=== PATIENT | female | born 1945 | race Caucasian/White ===

== ENCOUNTER → 2016-06-30 | Outpatient (CLI) | payer MEDICARE, BC | LOC: GMAH 11:09 | PROVIDERS: ATTEND Family Medicine | DX: E78.2 Mixed hyperlipidemia (principal) ==

== ENCOUNTER 2017-05-02 10:53 | Inpatient (IN) | payer MEDICARE, BC ==
--- NOTE | 2017-05-02 11:23 | ED.PDOC ---
History of Present Illness - General Chief Complaint: General Stated Complaint: weakness Time Seen by Provider: 05/02/17 11:20 Source: patient Exam Limitations: no limitations - History of Present Illness Initial Comments: Maria E Sheppard 72 y/o female brought by ems with worsening weakness for the last 3 weeks.She has history of COPD and has chronic coughing.Stated had hard time getting out of commode this am.No fever ,no chills,no dysuria Timing/Duration: other - see hpi Improving Factors: nothing Worsening Factors: nothing Associated Symptoms: shortness of breath - chronic, other - see hpi Allergies/Adverse Reactions: Allergies NO KNOWN ALLERGY Allergy (Verified 05/02/17 11:11) Home Medications: Ambulatory Orders Amlodipine Besylate 10 mg PO DAILY 05/02/17 Aspirin [Joseph Low Dose] 81 mg PO DAILY 05/02/17 Calcium Citrate-Vitamin D [Calcium Citrate/Vitamin D] 1 tab PO DAILY 05/02/17 Cholecalciferol [Vitamin D3] 1,000 unit PO DAILY 05/02/17 Fluticasone/Salmeterol 250/50 [Advair Diskus] 2 puff INH DAILY 05/02/17 Potassium Chloride [Micro-K] 40 meq PO DAILY 05/02/17 Pravastatin Sodium 20 mg PO DAILY 05/02/17 Spironolactone 25 mg PO QID 05/02/17 Review of Systems - Review of Systems Constitutional: States: see HPI, weakness EENTM: States: no symptoms reported Respiratory: States: other - copd Cardiology: States: no symptoms reported Gastrointestinal/Abdominal: States: no symptoms reported Genitourinary: States: no symptoms reported Musculoskeletal: States: no symptoms reported Skin: States: no symptoms reported Neurological: States: no symptoms reported Endocrine: States: no symptoms reported Past Medical History (General) - Patient Medical History Hx of COPD: Yes Hx Cardiac Disorders: No Hx Congestive Heart Failure: No Hx Hypertension: Yes Hx Diabetes: No Surgical History: appendectomy, tonsillectomy, other - Hysterectomy - Vaccination History Hx Influenza Vaccination: No Hx Pneumococcal Vaccination: Yes - Social History Hx Tobacco Use: Yes Hx Physical Abuse: No Hx Emotional Abuse: No Hx Suspected Abuse: No - Activities of Daily Living Patient Lives Alone: Yes - home Grooming Ability: Independent Eating (Feeding) Ability: Independent Toileting Ability: Independent - Female History Patient is a Female of Child Bearing Age (10 -59 yrs old): No Family Medical History - Family History Mother Family History: Unknown Living Status: Cause of : Colon CA Hx Cardiac Disease: Yes - dad Hx Family Cancer: Yes - mom Physical Exam - Physical Exam General Appearance: Alert, Comfortable, No apparent distress Eye Exam: bilateral normal Ears, Nose, Throat: hearing grossly normal, normal ENT inspection, normal pharynx Neck: non-tender, supple Respiratory: chest non-tender, no respiratory distress, decreased breath sounds Cardiovascular/Chest: normal peripheral pulses, regular rate, rhythm, no murmur Peripheral Pulses: radial,right: 2+, radial,left: 2+ Gastrointestinal/Abdominal: non tender, soft, no organomegaly Back Exam: no CVA tenderness, no vertebral tenderness Extremity: no calf tenderness, pedal edema - +1 Neurologic: insurance sales associate II-XII nml as tested, no motor/sensory deficits, alert, oriented x 3, other - pronator drift negative Skin Exam: normal color, warm/dry Lymphatic: no adenopathy Progress - Progress Progress: 05/02/17 11:27 Last Vital Signs Temp 96.9 F L 05/02/17 11:07 Pulse 91 H 05/02/17 11:07 Resp 24 05/02/17 11:07 BP 201/91 05/02/17 11:07 Pulse Ox 91 L 05/02/17 11:07 - Results/Orders Results/Orders: Laboratory Tests 05/02/17 05/02/17 05/02/17 11:50 11:50 11:50 WBC 7.6 RBC 4.82 Hgb 12.5 Hct 36.6 MCV 76.0 L MCH 25.9 L MCHC 34.0 RDW 13.8 Plt Count 416 H MPV 7.0 L Absolute Neuts (auto) 5.90 Absolute Lymphs (auto) 1.00 Absolute Monos (auto) 0.60 Absolute Eos (auto) 0.00 Absolute Basos (auto) 0.00 Neutrophils % 78.6 H Lymphocytes % 12.9 L Monocytes % 8.1 Eosinophils % 0.1 L Basophils % 0.3 D-Dimer, Quantitative < 200 pCO2 pO2 HCO3 ABG pH ABG O2 Saturation ABG Base Excess ABG Deoxyhemoglobin Oxyhemoglobin % Carboxyhemoglobin % Methemoglobin % Sat Calc Total Hemoglobin Sodium 119 L* Potassium 2.0 L* Chloride 69 L* Carbon Dioxide 39 H Anion Gap 13.0 BUN 6 L Creatinine 0.44 L BUN/Creatinine Ratio 13.6 Random Glucose 116 H Serum Osmolality 237.1 L* Calcium 9.2 Magnesium Total Bilirubin 0.9 AST 27 ALT 17 Alkaline Phosphatase 66 Troponin I B-Natriuretic Peptide 30.3 Serum Total Protein 6.5 Albumin 3.9 Globulin 2.6 Albumin/Globulin Ratio 1.5 05/02/17 05/02/17 05/02/17 11:50 13:07 13:29 WBC RBC Hgb Hct MCV MCH MCHC RDW Plt Count MPV Absolute Neuts (auto) Absolute Lymphs (auto) Absolute Monos (auto) Absolute Eos (auto) Absolute Basos (auto) Neutrophils % Lymphocytes % Monocytes % Eosinophils % Basophils % D-Dimer, Quantitative pCO2 47 H pO2 47 L* HCO3 41.3 ABG pH 7.550 H ABG O2 Saturation 84.7 L ABG Base Excess 16.4 ABG Deoxyhemoglobin 14.9 H Oxyhemoglobin % 82.5 L Carboxyhemoglobin % 2.2 H Methemoglobin % Sat 0.4 Calc Total Hemoglobin 11.1 L Sodium Potassium Chloride Carbon Dioxide Anion Gap BUN Creatinine BUN/Creatinine Ratio Random Glucose Serum Osmolality Calcium Magnesium 1.4 L Total Bilirubin AST ALT Alkaline Phosphatase Troponin I < 0.02 B-Natriuretic Peptide Serum Total Protein Albumin Globulin Albumin/Globulin Ratio - EKG/XRAY/CT EKG: Sinus, LVH, no ST T wave changes Comments: heart rate-84 XRAY: chest - copd changes Departure - Departure Clinical Impression: Hyponatremia, Hypokalemia, Hypomagnesemia Respiratory failure with hypoxia and hypercapnia Qualifiers: Chronicity: unspecified Qualified Code(s): J96.91 - Respiratory failure, unspecified with hypoxia Time of Disposition: 14:47 Disposition: Admit Patient Departure Forms: Patient Portal Self Enrollment Referrals: Jacek Garay MD [Primary Care Provider] - 1-2 Weeks Home Medications: Ambulatory Orders Amlodipine Besylate 10 mg PO DAILY 05/02/17 Aspirin [Joseph Low Dose] 81 mg PO DAILY 05/02/17 Calcium Citrate-Vitamin D [Calcium Citrate/Vitamin D] 1 tab PO DAILY 05/02/17 Cholecalciferol [Vitamin D3] 1,000 unit PO DAILY 05/02/17 Fluticasone/Salmeterol 250/50 [Advair Diskus] 2 puff INH DAILY 05/02/17 Potassium Chloride [Micro-K] 40 meq PO DAILY 05/02/17 Pravastatin Sodium 20 mg PO DAILY 05/02/17 Spironolactone 25 mg PO QID 05/02/17 Decision To Admit - Decistion To Admit Decision to Admit Reason: Admit from ER Decision to Admit Date: 05/02/17 - D/W Ros Choudhury-ANP/Hospitalist Decision to Admit Time: 14:45
[2017-05-02] MEDS ORDERED: IPRATROPIUM/ALBUTEROL 3 ML VIAL NEB ONE (11:46)
--- NOTE | 2017-05-02 12:18 | RAD ---
Study: Single Frontal View of the Chest. Indication:cough Comparison: None. Impression: Heart size normal. Emphysema, otherwise lungs clear. No acute osseous abnormality. Electronically signed by: Germain Beckham MD 05/02/2017 12:17 PM [facility]
[2017-05-02] MEDS ORDERED: KCL 40MEQ/NS 1,000 ML IVS PRN (13:25)
[2017-05-02] MEDS ORDERED: POTASSIUM CHLORIDE 20 MEQ TAB PO ONE (13:26)
[2017-05-02] MEDS ORDERED: MAGNESIUM SULFATE PREMIX 2GM 2 GM in PREMIX BAG 1 BAG IVPB ONE (14:41)
[2017-05-02] MEDS ORDERED: MAGNESIUM SULFATE PREMIX 2GM 50 ML IVPB ONE (14:52)
--- NOTE | 2017-05-02 15:37 | HP ---
SUPERVISING PHYSICIAN: Calvin Trevino M.D. CHIEF COMPLAINT: Weakness. HISTORY OF PRESENT ILLNESS: This is a 72 year-old female patient who was brought to the Emergency Room via ambulance to the . . 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 She increasingly had difficulty walking and a hard time getting around. She actually had been driving up until a few weeks ago and she was scared to drive her car. She actually said that she thinks she passed out at home several days ago but she cannot remember how long she was out. She did not hit her head or have any traumatic injuries and she does not know how long she was out. She has had some shortness of breath and she quit smoking approximately 4 months ago. She also has cooked very little and mostly has been surviving on Dr. Peppers and coffee. In the Emergency Room , her initial lab showed a sodium of 119 with potassium 2.0, chloride 69, carbon dioxide 39, serum osmolality 237.1. Magnesium was 1.4. WBCs were 7.6 with a left shift. She also had a hemoglobin of 12.5 and hematocrit of 36.6. D -dimer was less than 200 but her blood gas revealed a PCO2 of 47 with PO2 of 47. Her bicarb was 41.3 and pH was 7.55. Her O2 sats on her ABG was 84.7. Her chest x-ray showed emphysematous lungs. She was given some normal saline with potassium added. She was also given magnesium sulfate as well as several breathing treatments and I was called for admission to the hospital. PAST MEDICAL HISTORY: 1. Chronic obstructive pulmonary disease. 2. Hyperlipidemia. 3. Hypertension. PAST SURGICAL HISTORY: 1. Hysterectomy. 2. Tonsillectomy. 3. Appendectomy. CURRENT MEDICATIONS: Per the EMR and awaiting verification. ALLERGIES: NO KNOWN DRUG ALLERGIES. SOCIAL HISTORY: She lives alone. She is . She has 1 daughter that lives in [place], [place]. She has a 60 plus pack year history of cigarette smoking. She has smoked between 1 to 1-1/2 packs per day since age 12 , but quit 4 months ago. She denies any ETOH or illicit drug use. REVIEW OF SYSTEMS: GENERAL: Positive for weakness and fatigue. Negative for weight changes. HEENT: Negative for sinus symptoms, ear pain, vision changes or sore throat. RESPIRATORY: Positive for shortness of breath, wheezing and dry hacking cough. CARDIAC: Negative for chest pain, tachycardia or palpitations. GASTROINTESTINAL: Negative for abdominal pain, nausea, vomiting, diarrhea or constipation. GENITOURINARY: Negative for hematuria, nocturia or dysuria or polyuria. NEUROLOGIC: Positive for dizziness. Negative for headache or seizures. PHYSICAL EXAMINATION: VITAL SIGNS: She is afebrile, pulse rate 80, blood pressure 160/63, respiratory rate 24, O2 sat is 89 to 94% on 2 liters nasal cannula. GENERAL: This is a 72 year-old female patient who is lying in her hospital bed. She is in mild respiratory distress. HEENT: Normocephalic and atraumatic. Pupils are equal and reactive. Oropharynx is clear. NECK: Supple without mass. RESPIRATORY: She is slightly tachypneic. She has diminished breath sounds throughout with whistling expiratory wheeze noted especially in the apices. CARDIOVASCULAR: Regular rate and rhythm. ABDOMEN: Soft, nondistended, non-tender. Bowel sounds are positive. EXTREMITIES: No cyanosis, clubbing or edema. NEUROLOGIC: She is awake, alert and oriented times three, although she does get confused as far as her history but is easily reoriented. LABORATORY: Initial labs are per the History of Present Illness. Followup labs after her admission show PCO2 of 50 with PO2 of 62, pH is 7.49 with O2 saturation of 94.6. Sodium 118, potassium 2.2, chloride 73, carbon dioxide 34, glucose 130, magnesium 2.2. All other labs and films have been reviewed via the EMR. ASSESSMENT: 1. Acute exacerbation of chronic obstructive pulmonary disease with hypoxia and mild hypercapnia. 2. metabolic alkalosis with respiratory compensation. 3. Severe hyponatremia, initially her sodium was 119. It has now dropped to 118. 4. Severe hypokalemia. On admission was 2 and it is now 2.2. 5. Hypomagnesemia initially 1.4, after supplementation is 2.2. 6. History of chronic tobacco abuse recently quit about 4 months ago. 7. Hypertension. 8. Hyperlipidemia. PLAN: We will admit the patient to the hospital. She will be placed on a strict fluid restrictions of 1500 mL per 24 hours. She is going to receive 100 mL of hypertonic saline and then we will supplement her with normal saline with 40 mEq of potassium. I have also given her an extra potassium per IV. I will restart her home medications. She is on scheduled breathing treatments as well as p.r.n. breathing treatments. I have also given her some Solu-Medrol and I have started her on Zithromax and Rocephin. I have consulted [facility] as she lives alone and will need discharge planning. Physical Therapy will be consulted in 2 days, hopefully after we correct her electrolytes. She can be evaluated for her safety. I will also do an ambulation study in the next day or 2 to assess her need for oxygen at home. I have repeated her labs, including a magnesium in the morning as well as a chest x-ray. We will continue to monitor the patient closely and followup as needed. Dr. Trevino is the collaborating physician available for consultation. #[id number] [facility]
[2017-05-02] MEDS ORDERED: ALBUTEROL SULFATE 2.5 MG/3 ML VIAL NEB PRN (18:19)
[2017-05-02] MEDS ORDERED: SOD CHL 3% *HYPERTONIC* 500ML 100 ML IVS ONE (18:22)
[2017-05-02] MEDS ORDERED: KCL 40 MEQ/WATER FOR INJECTION 40 MEQ in PREMIX BAG 1 BAG IVPB ONE (18:26)
[2017-05-02] MEDS ORDERED: ENOXAPARIN SODIUM 40 MG/0.4 ML SYG SUBCU SCH (18:30)
[2017-05-02] MEDS ORDERED: PANTOPRAZOLE SODIUM IV 40 MG VIAL IV SCH (18:30)
[2017-05-02] MEDS: IV SET AND CAP CHANGE INJ INJ SCH (18:47)
[2017-05-02] MEDS ORDERED: methylPREDNISolone SODIUM SUC 125 MG/2 ML VIAL IV ONE (20:21)
[2017-05-02] MEDS: IPRATROPIUM/ALBUTEROL 3 ML VIAL INH SCH (20:45)
[2017-05-02] MEDS ORDERED: AZITHROMYCIN IV 500 MG in SODIUM CHLORIDE 0.9% 250ML 250 ML IVPB SCH (22:00)
[2017-05-02] MEDS: SODIUM CHLORIDE 0.9% (FLUSH) 10 ML SYG IV PRN (22:09)
[2017-05-02] MEDS ORDERED: SODIUM CHLORIDE 0.9% 250ML 0 ML ONE (22:25)
[2017-05-02] MEDS ORDERED: SODIUM CHL 0.9% 50ML MIN-BAG+ 50 ML IVPB ONE (22:25)
[2017-05-02] MEDS ORDERED: cefTRIAXone SODIUM 1 GM VIAL ONE (22:26)
[2017-05-02] MEDS ORDERED: AZITHROMYCIN IV 500 MG VIAL IVPB ONE (22:26)
[2017-05-02] MEDS ORDERED: KCL 40 MEQ/WATER FOR INJECTION 100 ML IVPB ONE (22:27)
[2017-05-02] MEDS: cefTRIAXone SODIUM 1 GM in SODIUM CHL 0.9% 50ML MIN-BAG+ 50 ML IVPB SCH (23:53)
[2017-05-03] MEDS ORDERED: AZITHROMYCIN 250 MG TAB PO SCH (01:00)
[2017-05-03] MEDS: KCL 40MEQ/NS 1,000 ML IVS PRN ×3 (01:38→18:10)
[2017-05-03] MEDS: SODIUM CHLORIDE 0.9% (FLUSH) 10 ML SYG IV PRN ×3 (01:39→20:46)
[2017-05-03] MEDS: methylPREDNISolone SODIUM SUC 125 MG/2 ML VIAL IV SCH ×2 (05:39→13:01)
[2017-05-03] MEDS ORDERED: PANTOPRAZOLE SODIUM TAB 40 MG PO ONE (08:45)
[2017-05-03] MEDS: IPRATROPIUM/ALBUTEROL 3 ML VIAL INH SCH ×4 (09:08→20:10)
[2017-05-03] MEDS: PANTOPRAZOLE SODIUM TAB 40 MG PO SCH (11:53)
--- NOTE | 2017-05-03 17:20 | PCM.CORE ---
Physician DVT/VTE - Nurse DVT Assessment & Total Each Risk Factor Represents 2 Points: Age 60-74 DVT Assessment Score: 2 - 2 Moderate Risk Treatments: Early Ambulation *, Sequential Compression Device Pharmacological: Enoxaparin 40mg SQ Daily
[2017-05-03] MEDS: POTASSIUM CHLORIDE 20 MEQ TAB PO SCH (18:07)
[2017-05-03] MEDS ORDERED: SODIUM CHL 0.9% 50ML MIN-BAG+ 50 ML IVPB ONE (20:28)
[2017-05-03] MEDS ORDERED: cefTRIAXone SODIUM 1 GM VIAL ONE (20:29)
[2017-05-03] MEDS: cefTRIAXone SODIUM 1 GM in SODIUM CHL 0.9% 50ML MIN-BAG+ 50 ML IVPB SCH (20:44)
[2017-05-03] MEDS: PRAVASTATIN SODIUM 20 MG TAB PO SCH (20:45)
[2017-05-03] MEDS: AZITHROMYCIN 250 MG TAB PO SCH (20:45)
[2017-05-03] MEDS: ENOXAPARIN SODIUM 40 MG/0.4 ML SYG SUBCU SCH (20:46)
[2017-05-04] MEDS: PANTOPRAZOLE SODIUM TAB 40 MG PO SCH (06:25)
[2017-05-04] MEDS ORDERED: ASPIRIN (CHEWABLE) 81 MG TAB ONE (08:02)
[2017-05-04] MEDS: IPRATROPIUM/ALBUTEROL 3 ML VIAL INH SCH ×4 (08:32→20:05)
[2017-05-04] MEDS ORDERED: FLUTICASONE/SALMETEROL 250/50 14 PUFF/17 GM INH INH SCH (09:00)
[2017-05-04] MEDS ORDERED: predniSONE 20 MG TAB PO ONE (09:00)
[2017-05-04] MEDS ORDERED: POTASSIUM CHLORIDE 20 MEQ TAB PO SCH (09:00)
[2017-05-04] MEDS ORDERED: methylPREDNISolone SODIUM SUC 40 MG/ML VIAL IV SCH (09:00)
[2017-05-04] MEDS: FLUTICASONE/SALMETEROL 250/50 14 PUFF/17 GM INH INH SCH ×2 (09:02→20:05)
--- NOTE | 2017-05-04 10:23 | PN ---
SUPERVISING PHYSICIAN: Calvin Trevino MD DATE: 05/03/17 SUBJECTIVE: The patient is still showing some mild increased respiratory effort but she appears to be comfortable. She is alert and oriented and notes she is feeling a little bit better but still continues to be weak. OBJECTIVE: VITAL SIGNS: Temperature 98.8, pulse 91, blood pressure 158/80, respirations 20, saturation 96% on one liter nasal cannula. I&O: negative balance of 17 with 1940 in and 1957 out. She has had one bowel movement and weight 52.8 kg. CHEST: Lung sounds remain diminished throughout but no obvious wheezing noted. HEART: Regular rate and rhythm. ABDOMEN: Soft, non-tender, positive bowel sounds. EXTREMITIES: No cyanosis, clubbing, or edema. NEUROLOGIC: She is alert and oriented x3. LABORATORY: White count 7,400 with hemoglobin 11.7, hematocrit 34.4, platelet count 382,000. Difficulty does show a left shift. Chemistries repeated from this morning show sodium 128, potassium 3.3, C02 at 33, BUN less than 5, creatinine 0.46, glucose 122, serum osmolality up to 255, calcium 8.7, magnesium 1.9. Liver functions within normal limits. Urinalysis show just a trace of blood on the dipstick. MICROBIOLOGY: No specimens are submitted. RADIOLOGY: No repeat radiographic studies were available for review. ASSESSMENT: 1. Acute exacerbation of chronic obstructive pulmonary disease with hypoxia and mild hypercapnia show ing improvement with initiation of bronchial hygiene and oxygen and bronchodilators. 2. Metabolic alkalosis with partial respiratory compensation as noted by initial ABG on admission with elevated bicarb level secondary to unknown etiology at this point possibly due to a syndrome of inappropriate antidiuretic hormone with patient having a very poor nutritional status on admission. 3. Severe electrolytes imbalance with a hyponatremia, hypokalemia with initial sodium at119 improving with IV fluids, hypertonic saline and magnesium and IV potassium replacement. 4. History of chronic tobacco abuse recently quit about 4 months previous. . 5. Hypertension. 6. Hyperlipidemia. PLAN: The patient continues on fluid restrictions and replacement of potassium. She continues with aggressive pulmonary hygiene and on parenteral antibiotics to include Rocephin and Azithromycin. Will continue with Solu- Medrol 60 every 8 hours with anticipation of changing to 40 every 12 hours. Will plan to repeat a BNP today later this afternoon to further assess electrolytes imbalances. Social Service has been consulted and patient has no wishes to go to a shelter but is wanting physical therapy and home health if possible as well as some assistance. This is being arranged and will be in place hopefully prior to discharge. Will await ambulatory studies to further assess her oxygenation needs at home. Until discharge, we will continue to monitor closely and treat appropriately. #[id number] [facility]
[2017-05-04] MEDS: CHOLECALCIFEROL 2,000 IU TAB PO SCH (10:50)
[2017-05-04] MEDS: CALCIUM CARBONATE-VITAMIN D 500 MG TAB PO SCH (10:50)
[2017-05-04] MEDS: POTASSIUM CHLORIDE 20 MEQ TAB PO SCH ×2 (10:50→17:57)
[2017-05-04] MEDS: amLODIPine BESYLATE 5 MG TAB PO SCH (10:50)
[2017-05-04] MEDS: ASPIRIN EC 81 MG TAB PO SCH (10:50)
[2017-05-04] MEDS: SPIRONOLACTONE 25 MG TAB PO SCH (10:51)
[2017-05-04] MEDS: SODIUM CHLORIDE 0.9% (FLUSH) 10 ML SYG IV SCH ×2 (10:51→20:30)
[2017-05-04] MEDS ORDERED: cefTRIAXone SODIUM 1 GM VIAL ONE (19:51)
[2017-05-04] MEDS ORDERED: SODIUM CHL 0.9% 50ML MIN-BAG+ 50 ML IVPB ONE (19:51)
[2017-05-04] MEDS: cefTRIAXone SODIUM 1 GM in SODIUM CHL 0.9% 50ML MIN-BAG+ 50 ML IVPB SCH (20:28)
[2017-05-04] MEDS: AZITHROMYCIN 250 MG TAB PO SCH (20:28)
[2017-05-04] MEDS: ENOXAPARIN SODIUM 40 MG/0.4 ML SYG SUBCU SCH (20:30)
[2017-05-04] MEDS: PRAVASTATIN SODIUM 20 MG TAB PO SCH (20:30)
[2017-05-05] MEDS: PANTOPRAZOLE SODIUM TAB 40 MG PO SCH (06:23)
--- NOTE | 2017-05-05 07:11 | RAD ---
Procedure: XR CHEST 2 VIEWS Exam Date: 05/05/2017 Ordering Provider: Darwin Camarena NP Clinical Indication: copd Comparison: 05/02/2017 Findings: Cardiomediastinal silhouette is within normal limits. Aortic calcification. Focal lung consolidation: No focal lung consolidation. Lungs are hyperinflated. Left basilar subsegmental atelectasis/scarring. Pleural effusion: Small bilateral pleural effusions versus scarring at the costophrenic angles. Pneumothorax: None Bones and soft tissues: No acute osseous abnormalities. Remote left-sided rib fractures. Impression: 1. Small bilateral pleural effusions versus scarring at the costophrenic angles. Electronically signed by: Jamie Loya MD 05/05/2017 7:10 AM [employer]
[2017-05-05] MEDS: FLUTICASONE/SALMETEROL 250/50 14 PUFF/17 GM INH INH SCH ×2 (08:13→20:40)
[2017-05-05] MEDS: IPRATROPIUM/ALBUTEROL 3 ML VIAL INH SCH ×4 (08:13→20:40)
[2017-05-05] MEDS: CHOLECALCIFEROL 2,000 IU TAB PO SCH (08:31)
[2017-05-05] MEDS: SPIRONOLACTONE 25 MG TAB PO SCH (08:32)
[2017-05-05] MEDS: CALCIUM CARBONATE-VITAMIN D 500 MG TAB PO SCH (08:32)
[2017-05-05] MEDS: SODIUM CHLORIDE 0.9% (FLUSH) 10 ML SYG IV SCH (08:33)
[2017-05-05] MEDS: amLODIPine BESYLATE 5 MG TAB PO SCH (08:33)
[2017-05-05] MEDS: ASPIRIN EC 81 MG TAB PO SCH (08:33)
[2017-05-05] MEDS: POTASSIUM CHLORIDE 20 MEQ TAB PO SCH ×2 (08:33→17:54)
--- NOTE | 2017-05-05 09:12 | PN ---
SUPERVISING PHYSICIAN: Calvin Trevino MD DATE: 05/04/17 SUBJECTIVE: The patient is feeling better today. She continues to be weak, but is alert and oriented. She has had no nausea, vomiting, diarrhea or chest pain. She is very concerned that she is weak and will be unable to function routinely at home. I discussed continuation with hospitalization to address underlying medical issues as well as physical therapy evaluation with anticipation of increasing strength and reconditioning. OBJECTIVE: VITAL SIGNS: Temperature 97.8. Pulse 96. Blood pressure 138/73. Respirations 20. Saturation 94% on 1 liter nasal cannula. I&Os show positive balance of 1516 with 2868 in, 1352 out. Weight 53.6 kg. CHEST: Lungs remain diminished towards the bases, but no obvious rales or rhonchi are noted. No wheezing is appreciated. The patient is comfortable with no obvious respiratory distress. HEART: Regular rate and rhythm. ABDOMEN: Soft, nontender. Positive bowel sounds. EXTREMITIES: No cyanosis, clubbing or edema. NEUROLOGIC: Alert and oriented times three. LABORATORY: White count today is up to 13,400 after continuation of corticosteroids. Hemoglobin 10, hematocrit 30.3, platelet count 367,000. Differential does show a left shift. Repeat blood gases today show pH 7.48 with PC02 of 42, P02 63, bicarb down to 30.8 with saturation 95% on 1 liter nasal cannula. Chemistries show sodium 131, potassium up to 3.6, BUN 9, creatinine 0.47, glucose 114, serum osmolality 262, calcium 8.6. ASSESSMENT: 1. Acute exacerbation of chronic obstructive pulmonary disease with hypoxia and mild hypercapnia showing improvement with initiation of bronchial hygiene, oxygen and bronchodilators. 2. Metabolic alkalosis with continuation of respiratory compensation with initial ABG showing elevated bicarb level of unknown etiology, felt to be possibly related to a syndrome of inappropriate antidiuretic hormone with patient having a very poor nutritional status on admission, improving with IV fluids 3. Severe electrolytes imbalance with a hyponatremia, hypokalemia with initial sodium at119, improving with IV fluids, hypertonic saline and magnesium replacement with p.o. and IV potassium replacement. 4. History of chronic tobacco abuse, recently quit about 4 months previous. . 5. Hypertension. 6. Hyperlipidemia. PLAN: We will continue with fluid restriction today. We will go ahead and saline lock her as she continues to improve. We will continue with aggressive pulmonary hygiene and parenteral antibiotics to include Rocephin and azithromycin. Repeat chest x-ray in the morning. We will decrease the Solu- Medrol in anticipation of tapering to a p.o. dose of prednisone. We will anticipate hopefully discharge decision within the next 2 to 3 days depending on how she does with physical therapy with anticipation of maybe needing Swing Bed. Until then, we will continue to monitor the patient closely and treat appropriately. #[id number] [facility]
--- NOTE | 2017-05-05 12:57 | CT ---
EXAM DESCRIPTION: Chest w/Contrast CLINICAL HISTORY: 72 years Female, SOB, Cough presistant hyponatermia, former smoker COMPARISON: None. TECHNIQUE: Axial post-IV contrast imaging with sagittal and coronal reconstruction FINDINGS: Small bilateral pleural effusions are present. There is no mediastinal or hilar adenopathy. Significant emphysematous changes are noted bilaterally mostly within the upper lobes. There is a 8 mm spiculated density left upper lobe, posterior segment, seen on axial images 11 and 12, series 2, and on coronal image 90, series 602. Bibasilar subsegmental atelectasis. Subdiaphragmatically there are numerous cysts throughout the liver, and there are cystic changes involving right kidney. Thoracic spondylosis. Lower thoracic compression deformities are noted, age indeterminate. May be further assessed with MR imaging if indicated. The lower thoracic compression deformity displays some retropulsion into the ventral aspect of the central spinal canal. IMPRESSION: Emphysematous changes 8 mm spiculated pulmonary density left upper lobe. Small neoplasm is not excluded. Consider FDG PET/CT imaging for further evaluation Bibasilar subsegmental atelectasis Liver and renal cysts as noted above Thoracic spondylosis. Mid and lower thoracic compression deformities as noted above. Consider MR imaging for further evaluation if indicated Electronically signed by: Abdirizak Blevins 05/05/2017 12:56 PM [employer]
[2017-05-05] MEDS: KCL 20 MEQ/NS 1,000 ML IVS PRN (14:31)
--- NOTE | 2017-05-05 16:35 | PN ---
DATE: 05/05/17 SUPERVISING PHYSICIAN: Calvin Trevino M.D. SUBJECTIVE: The patient reports that she is getting some of her strength back but remains weak and short of breath with any exertional effort. She has been afebrile with no nausea, vomiting or diarrhea. OBJECTIVE: VITAL SIGNS: Temperature 98.3, pulse 92, blood pressure 160/67, respirations 20, satting 97% on nasal cannula at 1 liter. I's and O's show a positive balance of 340 with 2240 in, 1900 out. Weight is 53.4 kg which is down from previous day at 53.6. CHEST: Lung sounds continue to be diminished towards the bases with mild expiratory wheezing noted to the left upper lung garcia. HEART: Regular rate and rhythm. ABDOMEN: Soft, non-tender. Positive bowel sounds. EXTREMITIES: No clubbing, cyanosis or edema. NEUROLOGIC: She is alert and oriented times three. LABORATORY: CBC is down to 11,900 with hemoglobin 10.8, hematocrit 32.9, platelet count 379,000. Differential shows a left shift. Chemistries show a decrease in sodium once again, it is down to 127 with serum osmolality 256. Potassium remains within normal limits at 4.2, carbon dioxide 31, BUN 9, creatinine 0.45. Uric acid was pending. Urine sodium pending. RADIOLOGY: Chest x-ray this morning per radiology interpretation two view chest showed small bilateral pleural effusions versus scar in the costophrenic angles. ASSESSMENT: 1. Acute exacerbation of chronic obstructive pulmonary disease with hypoxia and mild hypercapnia improving with initiation of bronchial hygiene, oxygen and bronchial dilators without any signs of pneumonia with etiology uncertain at this point. 2. Metabolic alkalosis with continuation of some respiratory compensation with last ABG showing continued elevated bicarb possibly related to a syndrome of inappropriate antidiuretic hormone with patient having very poor nutritional status on admission showing some improvement with IV fluids. 3. Severe electrolyte imbalance with a hyponatremia, hypokalemia with initial sodium at119, improving with IV fluids, although she is showing refractory hyponatremia after stopping IV fluids likely secondary to syndrome of inappropriate antidiuretic hormone with concerns for possible secondary etiology from underlying neoplasm of the lung with the patient having a history of chronic tobacco abuse having quit in the last 4 years pending further investigation with CT of the chest and urine sodium and uric acid levels. 4. History of chronic tobacco abuse, recently quit 4 months previously. 5. Hypertension. 6. Hyperlipidemia. PLAN: We will continue with aggressive pulmonary hygiene and oxygen as needed. I will plan to do a CT of her chest this morning with concerns for a possible underlying malignancy resulting in the consistent hyponatremia. Will reinitiate IV fluids with 2 liters nausea and 20 of potassium to try to correct the underlying hyponatremia and monitor response in the morning with repeat laboratory studies. Will go ahead and do another CMP this afternoon just to closely monitor her electrolyte response. She has an evaluation with Physical Therapy in the morning. If we can get her clinically stable, hopefully be able to discharge home with home health or physical therapy, or if needed Swing Bed. Will anticipate at least another 24 to 48 hours. Until then, will await results of the CT scan and reevaluate clinically in the morning, and monitor closely. #[id number] [facility]
[2017-05-05] MEDS: IV SET AND CAP CHANGE INJ INJ SCH (17:58)
[2017-05-05] MEDS ORDERED: SODIUM CHL 0.9% 50ML MIN-BAG+ 50 ML IVPB ONE (19:20)
[2017-05-05] MEDS ORDERED: cefTRIAXone SODIUM 1 GM VIAL ONE (19:21)
[2017-05-05] MEDS: cefTRIAXone SODIUM 1 GM in SODIUM CHL 0.9% 50ML MIN-BAG+ 50 ML IVPB SCH (20:33)
[2017-05-05] MEDS: ENOXAPARIN SODIUM 40 MG/0.4 ML SYG SUBCU SCH (20:34)
[2017-05-05] MEDS: PRAVASTATIN SODIUM 20 MG TAB PO SCH (20:34)
[2017-05-05] MEDS: AZITHROMYCIN 250 MG TAB PO SCH (20:34)
[2017-05-06] MEDS: KCL 20 MEQ/NS 1,000 ML IVS PRN (03:07)
[2017-05-06] MEDS: PANTOPRAZOLE SODIUM TAB 40 MG PO SCH (06:18)
[2017-05-06] MEDS: POTASSIUM CHLORIDE 20 MEQ TAB PO SCH ×2 (07:47→16:52)
[2017-05-06] MEDS: FLUTICASONE/SALMETEROL 250/50 14 PUFF/17 GM INH INH SCH ×2 (08:10→08:47)
[2017-05-06] MEDS: IPRATROPIUM/ALBUTEROL 3 ML VIAL INH SCH ×4 (08:46→20:30)
--- NOTE | 2017-05-06 09:03 | RAD ---
Procedure: XR CHEST 2 VIEWS Exam Date: 05/06/2017 7:00 AM ADVERTISING SPECIALIST Ordering Provider: Darwin Camarena NP Clinical Indication: cope exacerbation Comparison: None Findings: Lungs are hyperexpanded. No lobar consolidation, pleural effusion, or pneumothorax. Heart size is within normal limits. Vascular calcifications are seen in the aorta. No acute osseous abnormality. Impression: COPD. No lobar consolidation. Electronically signed by: Gaston Witt MD 05/06/2017 9:02 AM ADVERTISING SPECIALIST
[2017-05-06] MEDS: amLODIPine BESYLATE 5 MG TAB PO SCH (09:10)
[2017-05-06] MEDS: CALCIUM CARBONATE-VITAMIN D 500 MG TAB PO SCH (09:10)
[2017-05-06] MEDS: CHOLECALCIFEROL 2,000 IU TAB PO SCH (09:10)
[2017-05-06] MEDS: ASPIRIN EC 81 MG TAB PO SCH (09:10)
[2017-05-06] MEDS ORDERED: ACETAMINOPHEN 325 MG TAB PO PRN (10:14)
[2017-05-06] MEDS ORDERED: FUROSEMIDE INJ 20 MG/2 ML VIAL IV ONE (10:54)
[2017-05-06] MEDS ORDERED: POTASSIUM CHLORIDE 20 MEQ TAB PO ONE (10:55)
[2017-05-06] MEDS: predniSONE 20 MG TAB PO SCH (13:49)
[2017-05-06] MEDS: KCL 40MEQ/NS 1,000 ML IVS PRN (15:32)
--- NOTE | 2017-05-06 16:42 | PN ---
DATE: 05/06/17 SUPERVISING PHYSICIAN: Calvin Trevino M.D. SUBJECTIVE: The patient was actually able to get up to a chair and work with Physical Therapy, although she was quite winded with minimal effort. She has remained afebrile. She has had no nausea, vomiting or diarrhea, and no reported chest pains. OBJECTIVE: VITAL SIGNS: Temperature 98.6, pulse 99, blood pressure 133/72, respirations 22, satting 94% on nasal cannula at rest on 1 liter. I's and O's show a negative balance of 80 with 2170 in, 2250 out. She has had 1 bowel movement. Weight is 54.6 kg. CHEST: Lung sounds today are improved but diminished bilaterally towards the bases. There is no wheezing noted. HEART: Regular rate and rhythm. ABDOMEN: Soft, non-tender. Positive bowel sounds. EXTREMITIES: No clubbing, cyanosis or edema. NEUROLOGIC: She is alert and oriented times three. LABORATORY: CBC today shows white count of 9,600 with hemoglobin 10, hematocrit 31.6, platelet count 384,000. Differential is within normal limits. Chemistries show improving sodium at 130, potassium 3.7, BUN 6, creatinine 0.49, glucose 82, osmolality is up to 257. Liver functions show to be within normal limits. Albumin is low at 2.9 with total protein 5. Random sodium was 54. Uric acid was low at 2.0. RADIOLOGY: Chest x-ray this morning per radiology interpretation showed chronic obstructive pulmonary disease, no lobar consolidations. I did a CT of her chest with contrast yesterday and per review of radiology interpretation there was emphysematous changes as well as an 8 mm spiculated pulmonary density in the left upper lobe with small neoplasm unable to be excluded. Consider FDG PET/CT imaging to further evaluate. Also mentioned was bibasilar segmental atelectasis. There was also noted liver and renal cysts and thoracic spondylosis with mild and lower thoracic compression deformities as noted in the report. See that report for full details. ASSESSMENT: 1. Acute exacerbation of chronic obstructive pulmonary disease with hypoxia and mild hypercapnia improving with initiation of bronchial hygiene, oxygen and bronchodilator therapies with no obvious signs of pneumonia. 2. Metabolic alkalosis with respiratory compensation felt to be secondary to underlying poor nutrition status and dehydration showing improvement with IV fluids. 3. Severe electrolyte imbalance with hyponatremia, hypokalemia and initial sodium that was 119 improving with IV fluids with a low uric acid and an elevated urine sodium spot check felt to be secondary to a syndrome of inappropriate antidiuretic hormone with etiology likely from underlying neoplasm of the lung needing further workup in a patient who has chronic tobacco abuse with again CT showing a spiculated nodule in the left upper lung with the patient showing good response and correction of underlying hyponatremia and electrolyte imbalance with continued IV infusion, fluid restrictions and increased salt in diet. 4. History of chronic tobacco abuse recently quit in the last 4 months. 5. Hypertension. 6. Hyperlipidemia. PLAN: Will continue with aggressive pulmonary hygiene as previous as she is showing good improvement and continue with oxygen if needed. I did talk to her about the CT findings and she understood that she needed further workup once discharged. Will continue with IV fluids with potassium and sodium as she is showing good response to further normalize her electrolytes. She did have physical therapy evaluation and recommendations were that the patient would benefit from ongoing Swing Bed admission once clinically and medically stable. She is encouraged to get up to the chair and ambulate with the nurses as able and can tolerate, but to utilize oxygen at all times. Will anticipate an additional 24 hours of IV infusions with sodium and potassium, and p.o. replacement to further normalize her sodium and potassium levels with repeat of laboratory studies in the morning. Will anticipate hopefully being able to discharge Monday to Swing Bed if medically and clinically stable. Until then, will continue to monitor and treat appropriately. #[id number] [facility]
[2017-05-06] MEDS ORDERED: cefTRIAXone SODIUM 1 GM VIAL ONE (19:39)
[2017-05-06] MEDS ORDERED: SODIUM CHL 0.9% 50ML MIN-BAG+ 50 ML IVPB ONE (19:39)
[2017-05-06] MEDS: cefTRIAXone SODIUM 1 GM in SODIUM CHL 0.9% 50ML MIN-BAG+ 50 ML IVPB SCH (20:27)
[2017-05-06] MEDS: AZITHROMYCIN 250 MG TAB PO SCH (20:28)
[2017-05-06] MEDS: PRAVASTATIN SODIUM 20 MG TAB PO SCH (20:39)
[2017-05-06] MEDS: ENOXAPARIN SODIUM 40 MG/0.4 ML SYG SUBCU SCH (20:40)
[2017-05-07] MEDS: KCL 40MEQ/NS 1,000 ML IVS PRN (04:35)
[2017-05-07] MEDS: PANTOPRAZOLE SODIUM TAB 40 MG PO SCH (06:27)
[2017-05-07] MEDS ORDERED: MAGNESIUM SULFATE PREMIX 2GM 2 GM in PREMIX BAG 1 BAG IVPB ONE (07:49)
[2017-05-07] MEDS: POTASSIUM CHLORIDE 20 MEQ TAB PO SCH ×2 (07:53→16:54)
[2017-05-07] MEDS ORDERED: MAGNESIUM SULFATE PREMIX 2GM 50 ML IVPB ONE (07:58)
[2017-05-07] MEDS: predniSONE 20 MG TAB PO SCH (08:55)
[2017-05-07] MEDS: CALCIUM CARBONATE-VITAMIN D 500 MG TAB PO SCH (08:55)
[2017-05-07] MEDS: ASPIRIN EC 81 MG TAB PO SCH (08:56)
[2017-05-07] MEDS: CHOLECALCIFEROL 2,000 IU TAB PO SCH (08:56)
[2017-05-07] MEDS: amLODIPine BESYLATE 5 MG TAB PO SCH (08:56)
[2017-05-07] MEDS: IPRATROPIUM/ALBUTEROL 3 ML VIAL INH SCH ×4 (09:15→20:50)
[2017-05-07] MEDS: FLUTICASONE/SALMETEROL 250/50 14 PUFF/17 GM INH INH SCH ×2 (09:15→21:52)
--- NOTE | 2017-05-07 15:08 | PN ---
DATE: 05/07/17 SUPERVISING PHYSICIAN: Calvin Trevino M.D. SUBJECTIVE: The patient is showing good clinical improvement. She is able to actually ambulate in the hallways with the nurses. She has been to the bedside chair. She has had a shower. She continues on a normal saline infusion and is showing that her sodium is still low but has stabilized. She has been afebrile. She has not had any nausea, vomiting or diarrhea. She has improved her oral intake and is tolerating an oral diet. She remains alert and oriented. OBJECTIVE: VITAL SIGNS: Temperature 97.8, pulse 89, blood pressure 148/63, respirations 20, satting 95% on nasal cannula at rest on 2 liters. I's and O's show a negative balance of 950 with 2600 in, 3550 out. Weight is 55.3 kg. She has had 1 bowel movement. CHEST: Lungs are essentially clear but diminished towards the bases. There is no wheezing or rhonchi noted. HEART: Regular rate and rhythm. ABDOMEN: Soft, non-tender. Positive bowel sounds. EXTREMITIES: No clubbing, cyanosis or edema. NEUROLOGIC: She is alert and oriented times three. LABORATORY: White count has normalized to 9,600 with hemoglobin 10.5, hematocrit 31.6 with hypochromic microcytic RBC presentation with platelet count 384,000. Differential shows to be within normal limits today. Chemistries show a persistent hyponatremia of 129, potassium 4.8, carbon dioxide 28, BUN 10, creatinine 0.51, glucose 102, calcium 9.1, magnesium is again low at 1.3. MICROBIOLOGY: No specimens for review. RADIOLOGY: No repeat chest x-rays today. ASSESSMENT: 1. Acute exacerbation of chronic obstructive pulmonary disease with hypoxia and mild hypercapnia showing improvement with bronchodilators, bronchial hygiene, oxygen and remain without any signs of pneumonia. 2. Metabolic alkalosis compensated, felt to be secondary to underlying poor nutritional status prior to admission with some dehydration improved with IV fluids. 3. Severe electrolyte imbalance on admission with hyponatremia and hypokalemia with initial sodium of 119 requiring IV fluids as well as showing low uric acid and a sodium spot check that was elevated felt to be secondary to underlying syndrome on inappropriate antidiuretic hormone with possible etiology secondary to a respiratory origin from a possible neoplasm as noted on CT findings with the patient having a longstanding history of chronic tobacco abuse with the patient showing persistent hyponatremia despite ongoing infusions of normal saline as well as fluid restrictions and increased salt in her diet. 4. History of chronic tobacco abuse recently quit in the last 4 months. 5. Microcytic hypochromic anemia likely from ongoing chronic illness and malnutrition. 6. Hypertension. 7. Hyperlipidemia. PLAN: The patient has shown good clinical response today. She is getting stronger. Will continue with pulmonary hygiene and oxygen as needed. I discussed with the patient going home in the next day or 2 with home health and physical therapy versus Swing Bed for continuation and treatment of underlying deconditioning. Will plan to saline lock her tonight after additional infusion of normal saline and repeat her laboratory studies in the morning to further follow her electrolytes. She will need close followup once discharged in regards to the CT findings of the nodule within the left upper lobe of the chest. Will talk with Yris tomorrow in regards to planning for discharge to either Swing Bed or planning for home health. I will also discuss with Dr. Garay followup and further treatment of the underlying hyponatremia once discharged. #[id number] [facility]
[2017-05-07] MEDS ORDERED: cefTRIAXone SODIUM 1 GM VIAL IVPB ONE (19:30)
[2017-05-07] MEDS ORDERED: SODIUM CHL 0.9% 50ML MIN-BAG+ 50 ML IVPB ONE (20:11)
[2017-05-07] MEDS: cefTRIAXone SODIUM 1 GM in SODIUM CHL 0.9% 50ML MIN-BAG+ 50 ML IVPB SCH (20:19)
[2017-05-07] MEDS: ENOXAPARIN SODIUM 40 MG/0.4 ML SYG SUBCU SCH (20:52)
[2017-05-07] MEDS: PRAVASTATIN SODIUM 20 MG TAB PO SCH (20:52)
[2017-05-07] MEDS: SODIUM CHLORIDE 0.9% (FLUSH) 10 ML SYG IV SCH (20:53)
[2017-05-08] MEDS: PANTOPRAZOLE SODIUM TAB 40 MG PO SCH (06:30)
[2017-05-08 06:37] VITALS: BP 158/78; TEMP 98.5
[2017-05-08] MEDS: POTASSIUM CHLORIDE 20 MEQ TAB PO SCH (07:47)
[2017-05-08] MEDS: predniSONE 20 MG TAB PO SCH (08:38)
[2017-05-08] MEDS: CALCIUM CARBONATE-VITAMIN D 500 MG TAB PO SCH (08:38)
[2017-05-08] MEDS: amLODIPine BESYLATE 5 MG TAB PO SCH (08:38)
[2017-05-08] MEDS: CHOLECALCIFEROL 2,000 IU TAB PO SCH (08:38)
[2017-05-08] MEDS: ASPIRIN EC 81 MG TAB PO SCH (08:39)
[2017-05-08] MEDS: FLUTICASONE/SALMETEROL 250/50 14 PUFF/17 GM INH INH SCH (09:03)
[2017-05-08] MEDS: IPRATROPIUM/ALBUTEROL 3 ML VIAL INH SCH ×3 (09:03→13:20)
[2017-05-08] MEDS: SODIUM CHLORIDE 0.9% (FLUSH) 10 ML SYG IV SCH (09:40)
[2017-05-08 10:49] VITALS: O2SAT 95
[2017-05-08] MEDS ORDERED: MAGNESIUM SULFATE PREMIX 2GM 2 GM in PREMIX BAG 1 BAG IVPB ONE (14:11)
[2017-05-08] MEDS ORDERED: MAGNESIUM SULFATE PREMIX 2GM 50 ML IVPB ONE (14:25)
--- NOTE | 2017-05-21 17:28 | DS ---
SUPERVISING PHYSICIAN: Wayne Wilks M.D. DISCHARGE DIAGNOSIS: 1. Acute exacerbation of chronic obstructive pulmonary disease with hypoxia and mild hypercapnia on admission improved with bronchodilators, bronchial hygiene and oxygen remaining without any signs of pneumonia. 2. Metabolic alkalosis on admission compensated, felt to be secondary to underlying poor nutritional status prior to admission with some dehydration improved with IV fluids. 3. Severe electrolyte imbalance on admission with hyponatremia and hypokalemia with initial sodium of 119 requiring IV fluids and showing low uric acid and a sodium spot check that was elevated felt to be secondary to underlying syndrome of inappropriate antidiuretic hormone with possible etiology secondary to respiratory origin from a possible neoplasm as noted on CT findings with the patient having a longstanding history of chronic tobacco abuse with the patient showing persistent hyponatremia despite ongoing infusions of normal saline as well as fluid restrictions and increased salt in her diet. 4. History of chronic tobacco abuse recently quit within the last 4 months. 5. Concern for a lung neoplasm as noted on CT findings with a spiculated nodule in the left upper lobe requiring close clinical followup on discharge. 6. Microcytic hypochromic anemia likely from ongoing chronic illness and malnutrition. 7. Hypertension. 8. Hyperlipidemia. HISTORY OF PRESENT ILLNESS: Ms. Sheppard is a 72 year-old female patient that was brought to the Emergency Room via ambulance to the [facility]. She reported that about 3 to 4 weeks ago she was getting very weak and was at the point that she could not cone picker her refills on her medications, so she has not been taking her routine medications for about a month. She increasingly had difficulty walking and a hard time getting around. She actually had been driving up until a few weeks previous to admission and was scared to drive her car. She actually said that she thinks she passed out at home several days previously but she cannot remember how long she was out. She did not hit her head or have any traumatic injuries and she does not know how long she was out. She has had some shortness of breath and she quit smoking approximately 4 months ago. She also cooked very little and mostly has been surviving on Dr. Peppers and coffee. In the Emergency Room, her initial lab showed a sodium of 119 with potassium 2.0, chloride 69, carbon dioxide 39, serum osmolality 237.1. Magnesium was 1.4. WBCs were 7,600 with a left shift. She also had a hemoglobin of 12.5 and hematocrit of 36.6. D-dimer was less than 200 but her blood gas revealed a PCO2 of 47 with PO2 of 47. Her bicarb was 41.3 and pH was 7.55. Her O2 sats on her ABG was 84.7. Her chest x-ray showed emphysematous lungs. She was given some normal saline with potassium added. She was also given magnesium sulfate as well as several breathing treatments and was then admitted to the Medical/Surgical floor for ongoing treatment and evaluation. LABORATORY: CBC on admission showed 7,600 white count, it did go up to a maximum of 13,400 but with treatment and IV fluids and antibiotics it had shown to improve and was down to 9,600 prior to discharge. She did show a left shift but this had resolved prior to discharge. Hemoglobin and hematocrit had stabilized, initially on admission was 12.5 and 36.6 and at discharge was 10.5 and 31.6. Platelet count was within normal limits at 394,000. Coagulation studies showed D-dimer of less than 200. Her initial set of blood gases on showed a pH of 7.55, PCO2 of 47, PO2 of 47, bicarb of 41 with saturation of 84.7 with a base excess of 16. After initiation of treatment on 05/02/17 at 1700 her pH had down to 7.49 with PCO2 of 150, PO2 had improved to 62 with oxygen and bicarb was down to 37.4, base excess was 12.3. She was satting 94% on nasal cannula. After several days of treatment on 05/04/17, a repeat blood gas analysis showed that her pH was 7.48 with PCO2 of 42. PCO2 remained low at 63 with bicarb of 30, satting 95% on room air with base excess of 6.9. Chemistries initially sodium was 119, after 3% saline and continued IV infusions it did improve to 132, however after stopping any saline drip she started to show a drop and on 05/05/17 had gone down to 127 and 126. She was reinitiated on IV fluids with normal saline and had leveled off and shown to be fairly stable at 129 to 130. Her potassium initially on admission was 2.0, after replacement and stabilization prior to discharge was 3.8. Her chloride remained low initially at 69 on admission, prior to discharge had gone up to 92. Carbon dioxide initially on admission was 39, after treatment and initiation of oxygen and breathing treatments her CO2 had normalized and at discharge was 27. Anion gap was 13.0 on admission, at discharge was 13.8. Serum osmolality was low on admission at 237 and it improved again up to 270 after 3% saline, but after stopping her IV fluids for 24 to 48 hours it dropped again and went down to 254, prior to discharge with improvement had gone up to 255. Magnesium was low at 1.3, prior to discharge after replacement was 1.6. Liver functions all show to be within normal limits. TSH was normal at 1.87. Free thyroxine was 0.23, T4 was normal at 10, T3 uptake was normal at 43.4. Urinalysis on admission showed trace of lysed blood. Other labs within normal limits. Random sodium on 05/05/17 that was showing to be 54. Thyroid peroxidase which was within normal limits at less than 1. MICROBIOLOGY: She had no microbiology specimen submitted. RADIOLOGY: Radiographic studies included initial chest x-ray in the Emergency Department showed per radiology interpretation heart size normal. Emphysema, otherwise lungs were clear. She had a repeat chest x-ray on 05/05/17 and per radiology interpretation there was small bilateral pleural effusion versus scarring at the costophrenic angles. Due to her history of smoking and persistent hyponatremia, CT of the chest with contrast with completed and per radiology interpretation there was note of emphysematous changes and an 8 mm spiculated pulmonary density left upper lobe. Small neoplasm could not be excluded. Consider a PET or CT imaging for further evaluation. Please see that report for full details. She had an EKG on admission that showed normal sinus rhythm. HOSPITAL COURSE: Ms. Sheppard was admitted as noted above for ongoing exacerbation of chronic obstructive pulmonary disease and malnutrition with a severe hyponatremia. She was started on treatment initially with saline infusion with hypertonic saline. This was followed-up with an infusion of normal saline. She did show improvement in her electrolytes and her blood gases. She was started on oxygen and ongoing aggressive pulmonary hygiene, started on steroids and antibiotics including Rocephin and Azithromycin, and showed good response. She continued to show good improvement and was stabilized on her electrolytes as well as had been working with physical therapy , and was felt strong enough to return home to continue with outpatient treatment and close followup with Dr. Garay. She was kept on a fluid restriction as well as given low dose diuretics. PLAN: Ms. Sheppard was discharged on 05/07/17. She is to followup with Dr. Garay on discharge on 05/08/17 at 2:45 PM. Her home medications were continued as previous with no additional medications added. She was instructed to improve her nutritional status, increase her activities as tolerated. In efforts to increase her sodium and keep it up, to add sodium to her diet as she possibly could. She is to have close clinical followup of the neoplasm that was found on CT. Discharge medications were no new medications were added. Diet is a regular diet, high calorie, high sodium as tolerated. Activity is increase as tolerated. Condition at discharge was stable and improved. #[id number] [facility]
== END 2017-05-08 16:15 | disposition home or self-care (01) | DRG 191 ==
LOC: ER 10:53 → MS 15:36
PROVIDERS: ADMIT Nurse Practitioner Acute Care; ATTEND Emergency Medicine
PROC: BW241ZZ Computerized Tomography (CT Scan) of Chest and Abdomen using Low Osmolar Contrast (ICD-10-PCS; principal; 2017-05-05)
DX: J44.1 Chronic obstructive pulmonary disease with (acute) exacerbation (principal); E87.3 Alkalosis; E22.2 Syndrome of inappropriate secretion of antidiuretic hormone; E46 Unspecified protein-calorie malnutrition; I10 Essential (primary) hypertension; E78.5 Hyperlipidemia, unspecified; R09.02 Hypoxemia; E87.6 Hypokalemia; E83.42 Hypomagnesemia; D63.8 Anemia in other chronic diseases classified elsewhere; M47.9 Spondylosis, unspecified; K76.89 Other specified diseases of liver; N28.1 Cyst of kidney, acquired; E86.0 Dehydration; D49.1 Neoplasm of unspecified behavior of respiratory system; Z87.891 Personal history of nicotine dependence; Z79.82 Long term (current) use of aspirin

== ENCOUNTER → 2017-08-21 | Outpatient (CLI) | payer MEDICARE ==
--- NOTE | 2017-08-21 14:24 | RAD ---
EXAM DESCRIPTION: Chest,2 Views CLINICAL HISTORY: COPD COMPARISON: Previous 2 view chest x-ray May 06, 2017 TECHNIQUE: PA/lateral FINDINGS: There is no acute appearing cardiac or pulmonary abnormality. Heart size is normal with normal pulmonary vascularity. No pleural effusion or pneumothorax. Previous study showed blunted costophrenic angles and these appear cleared on the present exam suggesting interval resolution of small pleural effusions. Lungs are hyperexpanded with no consolidating infiltrate. Lateral view shows intact sternum and osteoporotic T-spine with chronic appearing mid and lower compressions. Left rib deformities are consistent with old fractures. Markedly calcified aorta is seen. IMPRESSION: Hyperexpanded lungs. No consolidating infiltrate. Electronically signed by: Patricio Taylor MD 08/21/2017 2:23 PM CDT
== END ==
LOC: RAD 11:13
PROVIDERS: ATTEND Internal Medicine
DX: J44.9 Chronic obstructive pulmonary disease, unspecified (principal)

== ENCOUNTER → 2017-09-18 | Outpatient (CLI) | payer MEDICARE ==
--- NOTE | 2017-09-18 11:21 | CT ---
EXAM DESCRIPTION: Chest w/Contrast : Computed Tomography. CLINICAL HISTORY: CHRONIC BRONCHITIS, OBSTRUCTIVE, WITH OUT EXACERBATION COMPARISON: Chest x-ray August 21, 2017.. CT thorax 05/05/2017. TECHNIQUE: Spiral-axial scans at 5.0 mm intervals through the lungs and thorax without IV contrast. 2.5 mm lung algorithm axial reconstructions. Coronal and sagittal 2.0 Mm reconstructions. No adverse reactions. Total Exam DLP: 318.2 mGy-cm. This exam was performed according to our departmental dose-optimization program which includes automated exposure control, adjustment of the mA and/or kV according to patient size and/or use of iterative reconstruction technique; to reduce radiation dose to as low as reasonably achievable (ALARA). FINDINGS: 80 mm somewhat lobulated irregular density in the posterior left upper lobe apex on sequence 4, image 35. Bilateral dilated airspaces more prevalent in the upper lobes less prevalent in the lower lung garcia.. Thickening of the pleura adjacent to the inferior major fissures. Bibasilar atelectasis. Bilateral pleural effusion on the prior study has resolved; no pneumothorax. Uniform enhancement in the thyroid gland. No soft tissue masses in the neck base. Atherosclerotic calcification of the aorta and the proximal brachiocephalic vessels. No enlarged lymph nodes in the axilla. No enlarged lymph nodes or soft tissue masses in the mediastinum or hilar regions. Again noted are multiple cysts in the liver and a large cyst partially visualized in the included upper pole of the right kidney. No free air or fluid in the included peritoneal space. Multiple levels of thoracic spondylosis. Compression fracture central and anterior T12 with minimal retropulsion stable since the prior study. Partial compression of the superior endplate at T9 also stable. IMPRESSION: 1. Stable 8 mm nodule in the posterior apex of the left upper lobe since April 2017. In Reference to [facility] Best Practice guidelines, recommend 12-18 month follow-up, utilizing 2017 Fleischner Society guidelines for solitary pulmonary nodule. Emphysematous changes more prevalent in the upper lobes bilaterally. Stable bibasilar atelectasis or scarring in the lower lobes. 2. No thoracic adenopathy. No soft tissue masses. Stable compression fracture T12 vertebral body and minimal compression superior T9 endplate. 3. Stable multiple hepatic cysts and large cyst in the upper pole of the right kidney. Electronically signed by: Ed Gaitan MD 09/18/2017 11:20 AM CDT
== END | disposition home or self-care (01) ==
LOC: CT 09:00
PROVIDERS: ATTEND Family Medicine
DX: J44.9 Chronic obstructive pulmonary disease, unspecified (principal)

== ENCOUNTER 2019-05-14 22:58 | Emergency (ER) | payer MEDICARE ==
--- NOTE | 2019-05-14 23:28 | ED.PDOC ---
History of Present Illness - General Stated Complaint: leg swelling Time Seen by Provider: 05/14/19 23:17 Source: patient, RN notes reviewed, Vital Signs reviewed Exam Limitations: no limitations - History of Present Illness Initial Comments: this is patient very poor historian, patient present to the ER because of bilateral lower extremity swelling. patient stated that symptoms began this afternoon. she usually gets swollen extremities bot she feels like the right is more swollen than usual and she feels like the left is also worse than usual. patient denies any exercise because she has been having some abdominal discomfort. Patient looks very fatigue and short of breath but she denies being short of breath. patient is a former smoker and she denies ever been diagnose with chf but she is on Lasix and potassium and she is not very complaint with medications and last time that she was in the hospital was 2 years ago Timing/Duration: other - since this afternoon Allergies/Adverse Reactions: Allergies NO KNOWN ALLERGY Allergy (Verified 05/02/17 11:11) Home Medications: Ambulatory Orders Amlodipine Besylate 10 mg PO DAILY 05/02/17 Aspirin [Joseph Low Dose] 81 mg PO DAILY 05/02/17 Calcium Citrate-Vitamin D [Calcium Citrate/Vitamin D] 1 tab PO DAILY 05/02/17 Cholecalciferol [Vitamin D3] 1,000 unit PO DAILY 05/02/17 Fluticasone/Salmeterol 250/50 [Advair Diskus] 2 puff INH DAILY 05/02/17 Potassium Chloride [Micro-K] 40 meq PO DAILY 05/02/17 Pravastatin Sodium 20 mg PO DAILY 05/02/17 Spironolactone 25 mg PO QID 05/02/17 Review of Systems - Review of Systems Constitutional: States: no symptoms reported EENTM: States: no symptoms reported Respiratory: States: orthopnea Cardiology: States: no symptoms reported Gastrointestinal/Abdominal: States: abdominal pain Musculoskeletal: States: other - leg swelling Skin: States: no symptoms reported Neurological: States: no symptoms reported Endocrine: States: no symptoms reported Hematologic/Lymphatic: States: no symptoms reported Past Medical History (General) - Patient Medical History Hx Seizures: No Hx Stroke: No Hx of COPD: Yes Hx Cardiac Disorders: No Hx Congestive Heart Failure: No Hx Hypertension: Yes Hx Diabetes: No Hx MRSA: No - Vaccination History Hx Influenza Vaccination: No Hx Pneumococcal Vaccination: Yes - Social History Hx Tobacco Use: Yes Hx Physical Abuse: No Hx Emotional Abuse: No Hx Suspected Abuse: No Family Medical History - Family History Mother Family History: Unknown Living Status: Cause of : Colon CA Hx Cardiac Disease: Yes - dad Hx Family Cancer: Yes - mom Physical Exam - Physical Exam General Appearance: Alert, Well Developed, Well Groomed, Well Hydrated Eye Exam: bilateral normal Ears, Nose, Throat: hearing grossly normal, normal ENT inspection Neck: non-tender, full range of motion, supple, other - no jvd Respiratory: chest non-tender, lungs clear, normal breath sounds, stridor, other - fatigue and sob with no wheezes, no crackles and no accesory muscles Cardiovascular/Chest: normal peripheral pulses, regular rate, rhythm, other - edema plus 2 in the right leg and +1 in the left no calf tenderness Peripheral Pulses: radial,right: 2+, radial,left: 2+ Gastrointestinal/Abdominal: normal bowel sounds, non tender, soft, no organomegaly, no pulsatile mass Back Exam: normal inspection, no CVA tenderness, no vertebral tenderness Extremity: pedal edema, swelling Neurologic: material reclaimer II-XII nml as tested, no motor/sensory deficits, alert, normal mood/affect, oriented x 3 Skin Exam: normal color Lymphatic: no adenopathy Progress - Progress Progress: 05/15/19 00:35 this is patient with possible hx of copd, possible chf, patient presents with bilateral leg swelling, non tender leg swelling. paitent does have a very distinct way or breathing which may suggest shortness of breath but according to friends she always breathes like this but today is more pronounce i will give her a duo neb treatment even though she aint wheezing, and order cbc,cmp, bnp, troponins and d dimers with chest xrays paitent d dimers were elevated, but patient troponins were negative, so do the ekg (no acute ischemic changes), normal bnp and normal chest x rays i did order a cta chest to rule out PE 05/15/19 01:02 patient is wanting to go home, i discussed with patient all the CT findings and I gave patient a copy of the ct result for her primary care physcian for furthermore evaluation of patient lung lesions. patient quit smoking 2 years ago and there is evidence of severe emphysema, not PE was seen on ct and i suspect that patient swelling is due to peripheral vascular disease patient will be discharge home with follow up with pcp Departure - Departure Clinical Impression: Edema leg, Peripheral vascular disease Disposition: Discharge to Home or Self Care Condition: Good Instructions: Peripheral Vascular (Arterial) Disease (DC), Dependent Edema (DC) Referrals: Jacek Garay MD [Active Staff] - 1-2 Weeks Home Medications: Ambulatory Orders Amlodipine Besylate 10 mg PO DAILY 05/02/17 Aspirin [Joseph Low Dose] 81 mg PO DAILY 05/02/17 Calcium Citrate-Vitamin D [Calcium Citrate/Vitamin D] 1 tab PO DAILY 05/02/17 Cholecalciferol [Vitamin D3] 1,000 unit PO DAILY 05/02/17 Fluticasone/Salmeterol 250/50 [Advair Diskus] 2 puff INH DAILY 05/02/17 Potassium Chloride [Micro-K] 40 meq PO DAILY 05/02/17 Pravastatin Sodium 20 mg PO DAILY 05/02/17 Spironolactone 25 mg PO QID 05/02/17 Additional Instructions: keep extremity elevated return to the er if chest pain, shortness of breath, sensation of fainting, excessive sweating, tingling sensation with irradiation to the left arm, neck, back, jaw, right arms and both arms.
--- NOTE | 2019-05-14 23:46 | RAD ---
EXAM DESCRIPTION: Chest,1 View CLINICAL HISTORY: 74 years Female, shorntess of breath COMPARISON: Chest x-ray August 21, 2017 FINDINGS: No consolidation. No pneumothorax. No significant pleural effusion.. Linear density in the right lung base is suggestive of atelectasis. Cardiac silhouette appears normal in size. Aortic atherosclerosis is present. Mild deformity of a few ribs bilaterally is demonstrated suggestive of remote trauma. IMPRESSION: No acute findings. Electronically signed by: Kyler Conley MD 05/14/2019 11:45 PM [facility]
[2019-05-15 00:42] VITALS: TEMP 97.9
[2019-05-15 00:52] VITALS: O2SAT 96
--- NOTE | 2019-05-15 00:58 | CT ---
EXAM DESCRIPTION: CTA Chest CLINICAL HISTORY: 74 years Female rule out pe COMPARISON: CT scan of the chest dated September 18, 2017. TECHNIQUE: Images were obtained in axial, sagittal, and coronal planes. Intravenous contrast was administered. This exam was performed according to our departmental dose-optimization program which includes use of Automated Exposure Control, adjustment of the mA and/or kV according to patient size and/or use of iterative reconstruction technique. FINDINGS: No filling defects pulmonary arteries bilaterally. No aortic dissection or dilatation. No pleural effusions bilaterally. Possible pericardial effusion posteriorly. 2 cm right hilar lymph node. Calcification left lobe of thyroid. Marked centrilobular emphysema. No new lung parenchymal infiltrates seen. 8 mm noncalcified spiculated nodule posterior left upper lobe increased in size when correlated with the prior study. No additional lung parenchymal nodules seen.. No acute osseous abnormality. Compression fractures T9 and T8 12th unchanged. Hepatic and right renal cysts again noted. Small hiatal hernia. IMPRESSION: No evidence for pulmonary embolus. No aortic dissection or dilatation. Marked COPD. 8 mm spiculated nodule posterior left upper lobe increased in size when correlated with the prior study. Correlation with radioisotope PET/CT scan would be suggested for further characterization. Neoplasm not excluded. Electronically signed by: Rula Zaldivar MD 05/15/2019 12:56 AM OPERATIONS AND MAINTENANCE TECHNICIAN
[2019-05-15 01:11] VITALS: BP 145/97
== END 2019-05-15 01:12 | disposition home or self-care (01) ==
LOC: ER 22:58
DX: R60.0 Localized edema (principal); I73.9 Peripheral vascular disease, unspecified; R10.9 Unspecified abdominal pain; J44.9 Chronic obstructive pulmonary disease, unspecified; I10 Essential (primary) hypertension; Z87.891 Personal history of nicotine dependence; Z79.82 Long term (current) use of aspirin; Z79.899 Other long term (current) drug therapy

== ENCOUNTER 2019-09-21 15:08 | Observation (INO) | payer MEDICARE ==
[2019-09-21] MEDS ORDERED: SODIUM CHLORIDE 0.9% 1000ML 1,000 ML IVS ONE (15:26)
[2019-09-21] MEDS ORDERED: cefTRIAXone SODIUM 1 GM in SODIUM CHL 0.9% 50ML MIN-BAG+ 50 ML IVPB ONE (15:29)
[2019-09-21] MEDS ORDERED: cefTRIAXone SODIUM 1 GM VIAL ONE (15:48)
[2019-09-21] MEDS ORDERED: SODIUM CHL 0.9% 50ML MIN-BAG+ 50 ML IVPB ONE (15:49)
--- NOTE | 2019-09-21 15:49 | ED.PDOC ---
History of Present Illness - General Chief Complaint: Trauma Stated Complaint: fall Time Seen by Provider: 09/21/19 15:25 Source: patient, old records Additional Information: 74yo F presents for evaluation of generalized weakness. The patient states she attempted to get up from the toilet today, but slipped to the floor. She denies pain and does not believe she sustained injury. Events occur in the context of recent admission to this hospital 2 weeks ago and subsequent stay at a [facility] re[facility] facility. Discharge diagnoses include: UTI, electrolyte disorder, dehydration. PMH includes COPD, CHF, HTN. The patient denies fever, cough or SOB above baseline. She is tachycardic on arrival. No other reported hx. - History of Present Illness Timing/Duration: 1-3 hours Improving Factors: nothing Worsening Factors: nothing Allergies/Adverse Reactions: Allergies NO KNOWN ALLERGY Allergy (Verified 09/08/19 19:20) Home Medications: Ambulatory Orders Amlodipine Besylate 10 mg PO QAM 05/02/17 Aspirin [Joseph Low Dose] 81 mg PO DAILY 05/02/17 Calcium Citrate-Vitamin D [Calcium Citrate/Vitamin D] 1 tab PO DAILY 05/02/17 Cholecalciferol [Vitamin D3] 2,000 unit PO DAILY 05/02/17 Potassium Chloride [Micro-K] 30 meq PO DAILY 05/02/17 Pravastatin Sodium 20 mg PO DAILY 05/02/17 Spironolactone 50 mg PO BID 05/02/17 Sulfa/Trimeth 800/160 (Ds) Tab [Bactrim DS] 1 tablet PO BID #10 tab 09/10/19 Review of Systems - Review of Systems Constitutional: States: weakness. Denies: chills, fever EENTM: Denies: blurred vision, double vision, nose congestion, throat pain Respiratory: States: short of breath. Denies: cough, wheezing Cardiology: Denies: chest pain, edema, palpitations, syncope Gastrointestinal/Abdominal: Denies: abdominal pain, diarrhea, nausea, vomiting Genitourinary: Denies: dysuria, frequency, hematuria Musculoskeletal: Denies: back pain, joint pain, muscle pain, neck pain Skin: Denies: change in color, rash Neurological: Denies: headache, numbness, weakness - No focal weakness Endocrine: States: no symptoms reported Hematologic/Lymphatic: States: no symptoms reported Past Medical History (General) - Patient Medical History Hx Seizures: No Hx Stroke: No Hx Dementia: No Hx Asthma: No Hx of COPD: Yes Hx Cardiac Disorders: No Hx Congestive Heart Failure: No Hx Pacemaker: No Hx Hypertension: Yes Hx Thyroid Disease: No Hx Diabetes: No Hx Gastroesophageal Reflux: No Hx Renal Disease: No Hx Cancer: No Hx of HIV: No Hx Hepatitis C: No Hx MRSA: No Surgical History: appendectomy, Hysterectomy - Vaccination History Hx Tetanus, Diphtheria Vaccination: No Hx Influenza Vaccination: No Hx Pneumococcal Vaccination: Yes - Social History Hx Tobacco Use: Yes Hx Chewing Tobacco Use: No Hx Alcohol Use: No Hx Substance Use: No Hx Substance Use Treatment: No Hx Depression: No Hx Physical Abuse: No Hx Emotional Abuse: No Hx Suspected Abuse: No Family Medical History - Family History Mother Family History: Unknown Living Status: Cause of : Colon CA Hx Cardiac Disease: Yes - dad Hx Family Cancer: Yes - mom Physical Exam - Physical Exam General Appearance: Alert, Frail Eye Exam: bilateral normal Ears, Nose, Throat: hearing grossly normal, normal ENT inspection Neck: non-tender, full range of motion, supple, normal inspection Respiratory: no respiratory distress, no accessory muscle use, wheezing - Few scattered Cardiovascular/Chest: normal peripheral pulses, no edema, tachycardia Gastrointestinal/Abdominal: non tender, soft Back Exam: normal inspection, no CVA tenderness, no vertebral tenderness Extremity: normal range of motion, non-tender, normal capillary refill Neurologic: no motor/sensory deficits, normal mood/affect, oriented x 3 Skin Exam: normal color, warm/dry Progress - Progress Progress: 09/21/19 15:54 DDX: Dehydration, generalized weakness, lyte disorder, UTI, COPD, CHF, ACS, sepsis, injury, renal failure, anemia. I wore a mask and gloves while evaluating the patient. The patient also wore a mask. Viet Porras MD. #[id number] 09/21/19 22:25 The patient is dehydrated. Elevated HR noted. 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 There has been no infectious source found. WBC is normal. The patient sats fall to 80s when resting but respond nicely to NC. Results discussed with pt. Will place into the hospital for observation given hypoxia, persistent tachycardia and volume status. 09/21/19 22:27 Discussed with Darwin Camarena. Will assume care in the hospital. 09/21/19 22:33 - Results/Orders Results/Orders: 09/21/19 15:30 EKG STAT 09/21/19 16:12 BLOOD CULTURE Stat 09/21/19 17:02 Urine Culture Stat Laboratory Results - last 24 hr 09/21/19 09/21/19 09/21/19 16:12 16:12 16:12 WBC 7.6 RBC 3.59 L Hgb 9.0 L Hct 27.6 L MCV 76.9 L MCH 25.2 L MCHC 32.7 L RDW 16.4 H Plt Count 489 H MPV 7.1 L Absolute Neuts (auto) 6.00 Absolute Lymphs (auto) 0.90 L Absolute Monos (auto) 0.60 Absolute Eos (auto) 0.00 Absolute Basos (auto) 0.10 Neutrophils % 79.5 H Lymphocytes % 11.6 L Monocytes % 7.5 Eosinophils % 0.3 L Basophils % 1.1 Sodium 128 L Potassium 3.7 Chloride 93 L Carbon Dioxide 26 Anion Gap 12.7 BUN < 5 L Creatinine 0.67 BUN/Creatinine Ratio 7.5 L Random Glucose 84 Serum Osmolality 253.5 L* Lactic Acid 2.8 H* Calcium 8.6 Magnesium Total Bilirubin 0.4 AST 29 ALT 21 Alkaline Phosphatase 117 Creatine Kinase 39 CK-MB (CK-2) 3.6 CK-MB (CK-2) % Not Reportable Troponin I < 0.02 B-Natriuretic Peptide 53.1 Serum Total Protein 5.6 L Albumin 2.9 L Globulin 2.7 Albumin/Globulin Ratio 1.1 Urine Color Urine Appearance Urine pH Ur Specific [place] Urine Protein Urine Glucose (UA) Urine Ketones Urine Blood Urine Nitrite Urine Bilirubin Urine Urobilinogen Ur Leukocyte Esterase Urine RBC Urine WBC Ur Epithelial Cells Urine Bacteria 09/21/19 09/21/19 16:13 16:41 WBC RBC Hgb Hct MCV MCH MCHC RDW Plt Count MPV Absolute Neuts (auto) Absolute Lymphs (auto) Absolute Monos (auto) Absolute Eos (auto) Absolute Basos (auto) Neutrophils % Lymphocytes % Monocytes % Eosinophils % Basophils % Sodium Potassium Chloride Carbon Dioxide Anion Gap BUN Creatinine BUN/Creatinine Ratio Random Glucose Serum Osmolality Lactic Acid Calcium Magnesium 1.2 L Total Bilirubin AST ALT Alkaline Phosphatase Creatine Kinase CK-MB (CK-2) CK-MB (CK-2) % Troponin I B-Natriuretic Peptide Serum Total Protein Albumin Globulin Albumin/Globulin Ratio Urine Color Yellow Urine Appearance Clear Urine pH 6.0 Ur Specific [place] 1.020 Urine Protein Negative Urine Glucose (UA) Negative Urine Ketones Negative Urine Blood Negative Urine Nitrite Negative Urine Bilirubin Negative Urine Urobilinogen 0.2 Ur Leukocyte Esterase Negative Urine RBC 0 Urine WBC 0 Ur Epithelial Cells 3-5 Urine Bacteria Rare Last Vital Signs Temp 98.1 F 09/21/19 21:52 Pulse 99 H 09/21/19 21:52 Resp 22 09/21/19 21:52 BP 119/66 09/21/19 21:52 Pulse Ox 98 09/21/19 21:52 - EKG/XRAY/CT EKG: Tachy - @ 117, nl axis, nl intervals., no ST T wave changes XRAY: chest - R lower changes. See read. CT: Chest: COPD. Mild effusions. Min R infiltrative chg. No acute. See read. Departure - Departure Clinical Impression: Generalized weakness, Shortness of breath, Dehydration, Tachycardia, Elevated lactic acid level Time of Disposition: 20:07 Disposition: Admit Patient Condition: Fair Home Medications: Ambulatory Orders Amlodipine Besylate 10 mg PO QAM 05/02/17 Aspirin [Joseph Low Dose] 81 mg PO DAILY 05/02/17 Calcium Citrate-Vitamin D [Calcium Citrate/Vitamin D] 1 tab PO DAILY 05/02/17 Cholecalciferol [Vitamin D3] 2,000 unit PO DAILY 05/02/17 Potassium Chloride [Micro-K] 30 meq PO DAILY 05/02/17 Pravastatin Sodium 20 mg PO DAILY 05/02/17 Spironolactone 50 mg PO BID 05/02/17 Sulfa/Trimeth 800/160 (Ds) Tab [Bactrim DS] 1 tablet PO BID #10 tab 09/10/19
--- NOTE | 2019-09-21 16:42 | RAD ---
EXAM DESCRIPTION: XR Chest,1 View CLINICAL HISTORY: 74 years Female, SOB COMPARISON: September 08, 2019 FINDINGS: Heart size appears borderline prominent, although accentuated by technique and not significantly changed. There is atherosclerotic change in the thoracic aorta. Compared to the previous study, there is increased density in the right lower chest, suspicious for a small to moderate right pleural effusion. Superimposed atelectatic or infiltrative change could be present. The lungs appear otherwise clear, although probably hyperinflated. There appears to be slight eventration of the left hemidiaphragm. No obvious pneumothorax identified on this upright portable film. There is slight patient rotation to the right. Old rib fractures are noted on the left. IMPRESSION: Pleuroparenchymal abnormality in the right lower chest, as described above. Continued follow-up is suggested. Electronically signed by: Magdi Wooten MD 09/21/2019 4:41 PM CDT
--- NOTE | 2019-09-21 18:54 | CT ---
EXAM DESCRIPTION: CTA Chest CLINICAL HISTORY: 74 years Female SOB, abnormal CXR COMPARISON: Radiograph of the chest performed on the same day. TECHNIQUE: Images were obtained in axial, sagittal, and coronal planes. Intravenous contrast was administered. This exam was performed according to our departmental dose-optimization program which includes use of Automated Exposure Control, adjustment of the mA and/or kV according to patient size and/or use of iterative reconstruction technique. FINDINGS: No filling defects pulmonary arteries bilaterally. No aortic dissection or dilatation. No pericardial effusion. Small bilateral pleural effusions right greater than left. No pneumothorax. Marked centrilobular emphysema. Mild airspace attenuation right lower lobe consistent with infiltrate and atelectatic change. No abnormal airspace opacity on left. No lung parenchymal nodules seen. No acute osseous abnormality. Multiple hepatic cysts. 6.4 cm cyst superomedial right kidney. IMPRESSION: No evidence for pulmonary embolus. No aortic dissection or dilatation. Marked COPD. Small bilateral pleural effusions right greater than left. Minimal infiltrate and atelectatic change right lower lobe. This is thought to correlate with the previously questioned findings on radiograph of the chest. Electronically signed by: Rula Zaldivar MD 09/21/2019 6:53 PM CDT
--- NOTE | 2019-09-21 21:25 | HP ---
SUPERVISING PHYSICIAN: Sky Galeana MD CHIEF COMPLAINT: Same level fall. HISTORY OF PRESENT ILLNESS: Ms. Sheppard is a 74-year-old female patient who just got out of [facility] rehabilitation and returned home. She had been in the hospital here and discharged on September 09 for same level fall while on the commode. She does continue to have weakness. On admission to the Emergency Room she denied any pain or other injuries. Initial workup, laboratory studies showed she had a stable persistent hyponatremia with a sodium of 128. Lactic acid was slightly elevated 2.8, otherwise liver functions were all within normal limits. Magnesium was low at 1.2. CBC showed a white count of 6,900, hemoglobin 8.1, hematocrit 24.6 with microcytic hypochromic presentation. Differential showed to be without a left shift. She had a chest x-ray and a CT of the chest and per radiology interpretation showed no evidence of pulmonary embolus, aortic dissection or dilation. There was marked chronic obstructive pulmonary disease with small bilateral pleural effusions right greater than left. Please see that report for details. Given the fact that she had just returned from rehabilitation and had the same fall and initially on discharge, I believe the plan was to discharge her to a rehabilitation and then the discharge from rehabilitation to another assisted living facility such as [facility]. Given her past medical history and recent falls and the fact that she is not able to go home, we are going to place her in observation so we can get her to [facility] in the morning, if not, by Monday. She was placed in observation in stable condition. PAST MEDICAL HISTORY: 1. Chronic obstructive pulmonary disease. 2. Hyperlipidemia. 3. Hypertension. PAST SURGICAL HISTORY: 1. Hysterectomy. 2. Tonsillectomy. 3. Appendectomy. CURRENT MEDICATIONS: Awaiting updated list in electronic medical records. ALLERGIES: NO KNOWN DRUG ALLERGIES. SOCIAL HISTORY: The patient lives by herself. She is . She has one daughter that lives in [place], [place], and one son that lives in [place]. She does have a history of smoking cigarettes approximately 60+ packs a year, but quit two years previously. She denies any alcohol or illicit drug use. She did just return from [facility] inpatient rehabilitation on 09/21/19. REVIEW OF SYSTEMS: CONSTITUTIONAL: Positive for generalize weakness and fatigue. Negative for unintentional weight loss. HEENT: Negative for sore throats, earaches, nasal congestion, headaches. RESPIRATORY: Negative for shortness of breath, coughing, wheezing. CARDIOVASCULAR: Negative for chest pain, tachycardia palpitations or syncopal episodes. GASTROINTESTINAL: Negative for nausea, vomiting, diarrhea, constipation or abdominal pain. GENITOURINARY: Negative for dysuria, hematuria, polyuria. NEUROLOGIC: Negative for headaches, seizures, ataxia, vision changes or other neurological deficits. HEMATOLOGIC: Denies easy bruising, unexplained bleeding or transfusion reactions. PHYSICAL EXAMINATION: VITAL SIGNS: Temperature 97.9, pulse 82, blood pressure 125/82, respirations 16, oxygen saturation 96% on 1 liter nasal cannula. GENERAL: The patient appears to be resting comfortably and does not appear to be in any acute distress. She is alert. HEENT: Tympanic membranes are clear bilaterally. Oropharynx is pink, moist without lesions. She is edentulous with history of dentures. NECK: Supple, non-tender, full range of motion, no jugular venous distention. CHEST: Clear to auscultation bilaterally without rhonchi, rales, or wheezes. CARDIOVASCULAR: Regular rate and rhythm without appreciable murmurs, rubs, or gallops. ABDOMEN: Soft, non-tender, positive bowel sounds. EXTREMITIES: No cyanosis, clubbing, or edema. NEUROLOGIC: She is alert and oriented x 3. Facial features were symmetrical. Extraocular movements within normal limits. No notable nystagmus. SKIN: Warm, pink and dry. LABORATORY: White count 6,900, hemoglobin 8.1, hematocrit 24.6, differential showed to be without a left shift. She showed a microcytic hypochromic anemia. Chemistries showed a sodium of 128, potassium normal at 3.7. Initial lactic acid 2.8, liver functions all within normal limits. Magnesium 1.2. Urinalysis showed to be within normal limits. MICROBIOLOGY: Blood cultures pending. RADIOLOGY: CT of the chest showed to be without any findings for pulmonary embolism. Please see that report for details. ASSESSMENT: 1. Same level fall, discharged on 09/21/19 from [facility] rehabilitation inpatient rehab. 2. Chronic hyponatremia with salt replacement with salt pills. 3. Ground level fall without any obvious acute injuries, needing continued rehabilitation for severe deconditioning.. 4. Chronic microcytic/hypochromic anemia, likely of chronic illness. 5. History of congestive heart failure without current signs or symptoms. 8. History of chronic obstructive pulmonary disease without any current signs of exacerbation. 9. Stable hypertension. PLAN: Ms. Sheppard is in the process of being accepted to [facility]. She is definitely not safe to go home as she just recently returned home 24 hours less from [facility] rehabilitation and sustained a same-level fall. Again, there were no acute injuries noted on the fall. Plan of care is to transfer her to SNF unit which she is in agreement to. DIET: Regular diet as tolerated. Will resume her home medications once those have been updated and verified. We will go ahead and continue to follow her labs as needed. I would anticipate her length of stay to be at least 2 to 3 days. Until we can discharge which hopefully will be tomorrow, to [facility] or [facility], whichever is accepting, we will continue to monitor and treat as needed. #[id number] MTDD
[2019-09-21] MEDS ORDERED: MAGNESIUM SULFATE PREMIX 2GM 2 GM in PREMIX BAG 1 BAG IVPB ONE (22:09)
[2019-09-21] MEDS ORDERED: MAGNESIUM HYDROXIDE 30 ML UD PO PRN (22:13)
[2019-09-21] MEDS ORDERED: ACETAMINOPHEN 325 MG TAB PO PRN (22:13)
[2019-09-21] MEDS ORDERED: ALUM & MAG HYDROX-SIMETHICONE 30 ML UD PO PRN (22:13)
[2019-09-21] MEDS ORDERED: ONDANSETRON INJ 4 MG/2 ML VIAL IV PRN (22:13)
[2019-09-21] MEDS ORDERED: SODIUM CHLORIDE 0.9% (FLUSH) 10 ML SYG IV PRN (22:13)
[2019-09-21] MEDS ORDERED: MAGNESIUM SULFATE PREMIX 2GM 50 ML IVPB ONE (22:23)
[2019-09-21] MEDS: SODIUM CHLORIDE 0.9% 1000ML 1,000 ML IVS PRN (22:28)
[2019-09-21] MEDS ORDERED: IV SET AND CAP CHANGE INJ INJ SCH (22:30)
[2019-09-22] MEDS: OMEPRAZOLE CAP 20 MG CAP PO SCH (06:08)
[2019-09-22] MEDS ORDERED: SODIUM CHLORIDE 2 GM PO SCH (11:15)
[2019-09-22] MEDS ORDERED: ALBUTEROL INHALER 64 PUFF/8GM INH PRN (12:15)
[2019-09-22] MEDS: SODIUM CHLORIDE 0.9% 1000ML 1,000 ML IVS PRN (16:02)
[2019-09-22] MEDS ORDERED: PRAVASTATIN SODIUM 20 MG TAB PO SCH (21:00)
[2019-09-22] MEDS ORDERED: ENOXAPARIN SODIUM 40 MG/0.4 ML SYG SUBCU SCH (21:00)
[2019-09-23] MEDS: SODIUM CHLORIDE 0.9% 1000ML 1,000 ML IVS PRN (04:17)
[2019-09-23] MEDS: OMEPRAZOLE CAP 20 MG CAP PO SCH (06:30)
[2019-09-23] MEDS ORDERED: POTASSIUM CHLORIDE ELIXIR 20 MEQ/15 ML UD PO ONE (08:48)
[2019-09-23] MEDS ORDERED: ASPIRIN (ENTERIC COATED) 81 MG TAB PO SCH (09:00)
[2019-09-23 15:25] VITALS: BP 149/82; TEMP 98.7; O2SAT 97
--- NOTE | 2019-09-23 18:14 | PN ---
SUPERVISING PHYSICIAN: : Sky Galeana MD DATE: 09/22/19 SUBJECTIVE: The patient is doing well. She has no complaints. She has been temporarily to [facility] and still waiting for final confirmation on her admission. OBJECTIVE: VITAL SIGNS: Temperature 97..9, pulse 82, blood pressure 125/82, respirations 16, oxygen saturation 96% on one liter nasal cannula. GENERAL:The patient is resting comfortably and does not appear to be in any acute distress. CHEST: Lung sounds clear to auscultation. HEART: Regular rhythm, no murmurs. ABDOMEN: Soft, non-tender, positive bowel sounds. EXTREMITIES: Without edema. NEUROLOGIC: She is alert and oriented 3. LABORATORY: White count 6,900, hemoglobin 8.1, hematocrit 24.6, differential showed to be without a left shift. Chemistries showed sodium 128, potassium 3.4, creatinine 0.51. Liver functions all within normal limits. MICROBIOLOGY: Urine culture pending, although initial urine showed no signs of infection. Blood cultures remain negative at 48 hours. ASSESSMENT: 1. Same level fall, discharged on 09/21/19 from [facility] rehabilitation inpatient rehab. 2. Chronic hyponatremia with salt replacement with salt pills. 3. Ground level fall without any obvious acute injuries, needing continued rehabilitation for severe deconditioning.. 4. Chronic microcytic/hypochromic anemia, likely of chronic illness. 5. History of congestive heart failure without current signs or symptoms. 8. History of chronic obstructive pulmonary disease without any current signs of exacerbation. 9. Stable hypertension. PLAN: Will continue to work to get the patient transferred and admitted to [facility] for continued rehabilitation efforts. We resumed her home medications. I anticipate we will discharge as soon as she is accepted to [facility] or [facility]. At this point, I think she will likely go to [facility]. Until the, we will continue to monitor and treat as needed. #[id number] MTDD
--- NOTE | 2019-09-24 11:13 | DS ---
SUPERVISING PHYSICIAN: Abdoul Victoria MD ADMISSION DIAGNOSIS: 1. Same level fall, discharged on 09/21/19 from [facility] rehabilitation inpatient rehab. 2. Chronic hyponatremia with salt replacement with salt pills. 3. Ground level fall without any obvious acute injuries, needing continued rehabilitation for severe deconditioning.. 4. Chronic microcytic/hypochromic anemia, likely of chronic illness. 5. History of congestive heart failure without current signs or symptoms. 8. History of chronic obstructive pulmonary disease without any current signs of exacerbation. 9. Stable hypertension. DISCHARGE DIAGNOSIS: 1. Same level fall, discharged on 09/21/19 from [facility] inpatient rehab. 2. Chronic hyponatremia with salt replacement with salt pills. 3. Ground level fall without any obvious acute injuries, needing continued rehabilitation for severe deconditioning.. 4. Chronic microcytic/hypochromic anemia, likely of chronic illness. 5. History of congestive heart failure without current signs or symptoms. 8. History of chronic obstructive pulmonary disease without any current signs of exacerbation. 9. Stable hypertension. REASON FOR HOSPITALIZATION: Ms. Sheppard is a 74-year-old female patient who just got out of [facility] rehabilitation and returned home. She had been in the hospital here and discharged on September 09 for same level fall while on the commode. She does continue to have weakness. On admission to the Emergency Room she denied any pain or other injuries. Initial workup, laboratory studies showed she had a stable persistent hyponatremia with a sodium of 128. Lactic acid was slightly elevated 2.8, otherwise liver functions were all within normal limits. Magnesium was low at 1.2. CBC showed a white count of 6,900, hemoglobin 8.1, hematocrit 24.6 with microcytic hypochromic presentation. Differential showed to be without a left shift. She had a chest x-ray and a CT of the chest and per radiology interpretation showed no evidence of pulmonary embolus, aortic dissection or dilation. There was marked chronic obstructive pulmonary disease with small bilateral pleural effusions right greater than left. Please see that report for details. Given the fact that she had just returned from rehabilitation and had the same fall and initially on discharge, I believe the plan was to discharge her to a rehabilitation and then the discharge from rehabilitation to another assisted living facility such as [facility]. Given her past medical history and recent falls and the fact that she is not able to go home, we are going to place her in observation so we can get her to [facility] in the morning, if not, by Monday. She was placed in observation in stable condition. LABORATORY: Discharge chemistry showed sodium 128, potassium 2.8, creatinine 0.46. White count was normalized at 6,900 with differential showing no left shift. Urinalysis showed no signs of infection. MICROBIOLOGY: She had a urine culture that was still pending that showing no growth. Blood cultures negative at 48 hours. RADIOLOGY: She did have a CT of the chest and thorax on admission and per radiologic interpretation showed no evidence of a pulmonary embolus, no aortic dissection or dilation and there was note of marked COPD. See that report for details. She did have an EKG on admission that showed a sinus tachycardia without any acute findings. HOSPITAL COURSE: Ms. Sheppard was placed in observation after she sustained a same- level fall at home after being discharged the say day from [facility]. She needs to continue with physical therapy and after discussion with the patient, she was in agreement to continue with rehab through a residential unit such as [facility] or [facility]. The patient was accepted to [facility] in admission on same day as discharge on 09/23/19. The patient was clinically stable. Potassium was a little bit low. She was treated with oral potassium. Her sodium was actually showing to be stable. I did discuss the case with Dr. Galeana who will followup with the patient once admitted to [facility]. PLAN: Ms. Sheppard was discharged on 09/23/19 and admitted to [facility]. Diagnosis was: 1. Chronic hyponatremia, but stable, with mild hypokalemia. 2. Multiple ground level falls without loss of consciousness secondary to deconditioning. 3. Deconditioning complicated by advanced age and decreased mobility. Diet: Regular diet as tolerated with nutritional consult for diet plan. Activity: We will have physical therapy to evaluate and treat. Medications: As per written prescription and current MAR. Nursing Care: As per institutional protocols. Laboratory: Labs to be drawn with repeat BMP this week. They are to call Dr. Galeana's office to schedule that lab draw as well as answer any questions. Followup: Call Dr. Galeana's office to schedule appointment and establish current plan of care. She was told to return to the Emergency Department if needed and call Dr. Galeana's office for any questions or further orders. DISPOSITION: The patient was discharged to [facility]. CONDITION ON DISCHARGE: Stable and improved. #[id number] [facility]
== END 2019-09-23 14:45 ==
LOC: ER 15:08 → MS 21:23
PROVIDERS: ADMIT Nurse Practitioner Family; ATTEND Nurse Practitioner Family
DX: E87.1 Hypo-osmolality and hyponatremia (principal); E87.2 Acidosis; E83.42 Hypomagnesemia; E87.6 Hypokalemia; E86.0 Dehydration; D50.9 Iron deficiency anemia, unspecified; I11.0 Hypertensive heart disease with heart failure; I50.9 Heart failure, unspecified; J44.9 Chronic obstructive pulmonary disease, unspecified; R53.1 Weakness; R00.0 Tachycardia, unspecified; E78.5 Hyperlipidemia, unspecified; Z79.82 Long term (current) use of aspirin; Z79.899 Other long term (current) drug therapy; Z91.81 History of falling; Z60.2 Problems related to living alone; Z87.891 Personal history of nicotine dependence; Z87.440 Personal history of urinary (tract) infections
CPT/HCPCS: 96361 ×3; 96367; 96365; 96372; J0696; J7030 ×4; J1650; J3475; J7050; 80048; 82553; 80053 ×2; 87086; 36415 ×5; 81001; 85025 ×2; 82550; 87040 ×2; 83735 ×2; 84484; 83880; 83605 ×2; 71045; 71275; 94760 ×2; 94762; 99285; 93005

== ENCOUNTER 2019-09-30 07:20 | Emergency (ER) | payer MEDICARE ==
[2019-09-30] MEDS ORDERED: ASPIRIN TABLET 325 MG TAB PO ONE (07:55)
--- NOTE | 2019-09-30 07:56 | RAD ---
EXAM DESCRIPTION: Chest,1 View CLINICAL HISTORY: sob COMPARISON: 09/21/2019 FINDINGS: Single frontal view of the chest. Cardiomediastinal silhouette: Atherosclerotic calcification tortuosity of thoracic aorta. Heart is not enlarged. Lungs: Interval increase in bibasilar pleural effusions with likely underlying atelectasis or consolidation. No pneumothorax. Hyperinflation. Bones: Degenerative change of the spine shoulders. Upper abdomen: No abnormality identified. IMPRESSION: 1. Interval increase in small bilateral pleural effusions with likely underlying atelectasis or consolidation. 2. Obstructive lung disease. Electronically signed by: Simon Travis 09/30/2019 7:55 AM CDT
[2019-09-30] MEDS ORDERED: cefTRIAXone SODIUM 1 GM in SODIUM CHL 0.9% 50ML MIN-BAG+ 50 ML IVPB ONE (07:58)
[2019-09-30] MEDS ORDERED: cefTRIAXone SODIUM 1 GM VIAL ONE (08:13)
[2019-09-30] MEDS ORDERED: SODIUM CHL 0.9% 50ML MIN-BAG+ 50 ML IVPB ONE (08:14)
[2019-09-30] MEDS ORDERED: FUROSEMIDE INJ 40 MG/4 ML VIAL IV ONE (09:31)
[2019-09-30] MEDS ORDERED: NITROGLYCERIN 2% 1 GM UD TOP ONE (09:31)
[2019-09-30] MEDS ORDERED: HEPARIN PREMIX 25,000 UNITS in PREMIX BAG 1 BAG IVS ONE (09:39)
[2019-09-30] MEDS ORDERED: HEPARIN SODIUM (PORCINE) 5,000 U/ML VIAL IV ONE (09:39)
[2019-09-30] MEDS ORDERED: SOD POLYSTYRENE SULFONATE 15 GM/60 ML BTTL PO ONE (09:44)
[2019-09-30] MEDS ORDERED: HEPARIN PREMIX 500 ML ONE (09:45)
[2019-09-30] MEDS ORDERED: CALCIUM CHLORIDE INJ 100 MG/ML SYG IV ONE (09:45)
[2019-09-30] MEDS ORDERED: SODIUM BICARBONATE VIAL 50 MEQ/50 ML VIAL IV ONE (09:47)
[2019-09-30] MEDS ORDERED: SODIUM CHLORIDE 0.9% 50ML 50 ML ONE (10:02)
--- NOTE | 2019-09-30 10:15 | ED.PDOC ---
History of Present Illness - General Chief Complaint: Respiratory Problem Stated Complaint: shortness of breath Time Seen by Provider: 09/30/19 07:28 Source: patient, EMS notes reviewed, longterm records Exam Limitations: clinical condition - History of Present Illness Initial Comments: The patient is a 74-year-old female presented to emergency room secondary to progressive shortness of breath what she is saying is the last 1 to 2 days. No chest pain whatsoever. Patient does have some mild dementia so the history is somewhat questionable. The patient was actually in the hospital here about 10 days ago for COPD exacerbation. At that time she had a completely normal BNP. Her potassium was low at 2.8. She had been started on potassium supplement at the longterm. As far she can tell me she does not have any history of coronary artery disease or significant arrhythmia. EMS was called for hypoxia. Initially upon arrival her oxygen saturations were in the low 80s to high 70s. Initial heart rate was in the 40s. She was getting a nebulizer treatment when they arrived. Oxygen saturations significantly improved with the nebulizer treatment and with being placed on a nonrebreather. Heart rate came up after that as well into the 120s. Upon arrival here her heart rate is in the 120s. Blood pressure is adequate. She still has scattered rails throughout but no wheezes. She reports no chest pain. She reports that she has been wearing some oxygen off and on at the longterm. She is unsure if she was wearing it last night. She reports that she feels like she is breathing much better at this point. No productive cough. No fever. The patient is from a longterm. There is no known COVID cases there. She was still in isolation there because she was a fairly new resident there. At the admission 10 days ago, the patient did have a CT angiogram of the chest due to an elevated d-dimer, which was negative for pulmonary embolus. Timing/Duration: other - 1 to 2 days according to the resident but possibly shorter given her dementia Severity: severe Improving Factors: medication Worsening Factors: nothing Associated Symptoms: cough, malaise, shortness of breath Allergies/Adverse Reactions: Allergies NO KNOWN ALLERGY Allergy (Verified 09/08/19 19:20) Home Medications: Ambulatory Orders Aspirin [Joseph Low Dose] 81 mg PO DAILY 05/02/17 Calcium Citrate-Vitamin D [Calcium Citrate/Vitamin D] 1 tab PO DAILY 05/02/17 Cholecalciferol [Vitamin D3] 2,000 unit PO DAILY 05/02/17 Potassium Chloride [Micro-K] 40 meq PO BID 05/02/17 Pravastatin Sodium 20 mg PO BEDTIME 05/02/17 Acetaminophen 650 mg PO Q4H PRN MDD 3000 mg 09/22/19 Albuterol Inhaler 90 mcg INH Q4H PRN 09/22/19 Prilosec 20 mg PO DAILY 09/22/19 Sodium Chloride 2 gm PO BID 09/22/19 Review of Systems - Review of Systems Constitutional: States: malaise, weakness - Generalized EENTM: States: no symptoms reported Respiratory: States: short of breath Cardiology: States: no symptoms reported Gastrointestinal/Abdominal: States: no symptoms reported Genitourinary: States: no symptoms reported Musculoskeletal: States: no symptoms reported Skin: States: no symptoms reported Neurological: States: see HPI Endocrine: States: no symptoms reported Hematologic/Lymphatic: States: no symptoms reported All other Systems: No Change from Baseline Past Medical History (General) - Patient Medical History Hx Seizures: No Hx Stroke: No Hx Dementia: No Hx Asthma: No Hx of COPD: Yes Hx Cardiac Disorders: No Hx Congestive Heart Failure: Yes Hx Pacemaker: No Hx Hypertension: Yes Hx Thyroid Disease: No Hx Diabetes: No Hx Gastroesophageal Reflux: No Hx Renal Disease: No Hx Cancer: No Hx of HIV: No Hx Hepatitis C: No Hx MRSA: No - Vaccination History Hx Tetanus, Diphtheria Vaccination: No Hx Influenza Vaccination: No Hx Pneumococcal Vaccination: Yes - Social History Hx Tobacco Use: Yes Hx Chewing Tobacco Use: No Hx Alcohol Use: No Hx Substance Use: No Hx Substance Use Treatment: No Hx Depression: No Hx Physical Abuse: No Hx Emotional Abuse: No Hx Suspected Abuse: No - Activities of Daily Living Penitentiary/Assisted Living (if applicable):: [facility] (if applicable):: None - Female History Patient is a Female of Child Bearing Age (10 -59 yrs old): No Patient : No - Triage Comment ED Triage Comment: pt having shortness of breath, difficulty breathing this morning. pt on oxygen via nasal cannula at facility. pt placed on NRB at 15L/min in route EMS. pt communicates without difficulty upon arrival, notably short of breath and tachypneic. Family Medical History - Family History Mother Family History: Unknown Living Status: Cause of : Colon CA Hx Cardiac Disease: Yes - dad Hx Family Cancer: Yes - mom Physical Exam - Physical Exam General Appearance: Alert, Frail, Ill Appearing Eye Exam: bilateral normal Ears, Nose, Throat: hearing grossly normal, normal pharynx Neck: non-tender, supple Respiratory: respiratory distress - Moderate, decreased breath sounds, accessory muscle use, rales Cardiovascular/Chest: normal peripheral pulses, no edema, tachycardia - Currently but apparently bradycardic at the longterm Peripheral Pulses: radial,right: 2+, radial,left: 2+ Gastrointestinal/Abdominal: non tender, soft Rectal Exam: deferred Back Exam: no CVA tenderness, no vertebral tenderness Extremity: normal range of motion, non-tender, no calf tenderness, normal capillary refill Neurologic: drywall hanger helper II-XII nml as tested, alert, normal mood/affect, oriented x 3 Skin Exam: pallor Comments: Vital Signs - 24 hr 09/30/19 09/30/19 09/30/19 07:20 07:22 08:22 Temperature 97.0 F L 97.0 F L Pulse Rate 123 H 104 H Pulse Rate [ 123 H 123 H 104 H right brachial] Respiratory 28 H 22 22 Rate Blood Pressure 127/77 127/77 [Right Arm] O2 Sat by Pulse 94 L 94 L Oximetry Progress - Progress Progress: 09/30/19 10:19 The patient is a 74-year-old female presented emergency room from the longterm secondary to increasing shortness of breath with significant hypoxia and initial bradycardia. It appears that the patient is in a CHF exacerbation with pulmonary edema. Supplemental oxygen as well as Lasix and a breathing treatment have helped significantly with this. Lungs are clearing up much better at this point. She is down to 2 L on nasal cannula at this point, from requiring the nonrebreather. The patient also likely has a right lower lobe pneumonia based on x-ray and leukocytosis. She is being started on a dose of Rocephin. A blood culture has been performed. She has not yet received any azithromycin due to desire to stabilize electrolyte instability prior to dosing. The patient has significant hyperkalemia that is likely iatrogenic due to recent supplementation due to hypokalemia. The patient has received a dose of Kayexalate, calcium chloride, sodium bicarbonate, the nebulizer treatment and a dose of Lasix in treatment of this. This will obviously have to be followed. It is uncertain how much the hyperkalemia contributed to the initial bradycardia noted this morning. There is no EKG available from the bradycardic episode. Based upon the new T wave inversions that were not present 10 days ago or on her previous EKGs prior to that, it is not unlikely that silent angina is contributing to the CHF exacerbation. To that end the patient was being started on a heparin drip, she has received a dose of aspirin and has nitroglycerin topically in place. She seems to be tolerating this well. Again she has not had any chest pain to this point. The patient does have a elevated lactic acid level. I believe that most likely this is due to global hypoperfusion hypoxia overnight. She has not received any supplemental fluid to this time. She may yet in the near future require some back. For now the Lasix has been required in treatment of the CHF and hyperkalemia. We have not have been able to obtain a sputum culture as she does not really have a productive cough. The patient does come from a longterm but there is no known coronavirus at the longterm and the patient has been on isolation since her arrival there better than a week ago simply has a standard longterm procedure for new patient's these days. Transferring for higher level of care. Acceptance is appreciated. Critical care time spent is 50 minutes. anurag villegas [id number] - Results/Orders Results/Orders: Initial EKG shows sinus tachycardia 122 bpm. Normal axis. Poor R wave progression in anterior leads. This is an old finding. A new finding in comparison to her previous EKG from just 10 days ago is market T wave inversions in leads V5 and V6 as well as leads I and II. Not present previously. The patient also has mild J-point elevation in V2 and V3. Repeat EKG does not show persistence of this J-point elevation but does show persistent right inversion. QT interval is within normal limits at this point. Chest pain is consistent with pulmonary edema as well as bilateral pleural effusions and likely a right lower lobe infiltrate. Laboratory Tests 09/30/19 09/30/19 09/30/19 07:30 08:50 08:50 WBC 14.6 H RBC 4.11 L Hgb 10.2 L Hct 32.7 L MCV 79.6 L MCH 24.9 L MCHC 31.3 L RDW 17.6 H Plt Count 413 H MPV 8.7 Absolute Neuts (auto) 12.50 H Absolute Lymphs (auto) 1.20 Absolute Monos (auto) 0.90 H Absolute Eos (auto) 0.00 Absolute Basos (auto) 0.10 Neutrophils % 85.7 H Lymphocytes % 8.1 L Monocytes % 5.8 Eosinophils % 0.0 L Basophils % 0.4 PT INR PTT (SP) D-Dimer, Quantitative pCO2 35 pO2 76 L HCO3 20.7 ABG pH 7.384 ABG O2 Saturation 94.6 L ABG Base Excess -3.9 ABG Deoxyhemoglobin 5.3 H Oxyhemoglobin % 93.2 L Carboxyhemoglobin % 0.5 Methemoglobin % Sat 1.0 Calc Total Hemoglobin 9.7 L Sodium 133 L Potassium 7.6 H* Chloride 104 Carbon Dioxide 21 Anion Gap 15.6 BUN 18 Creatinine 1.13 BUN/Creatinine Ratio 15.9 Random Glucose 96 Serum Osmolality 268.1 L Lactic Acid Calcium 9.4 Magnesium 1.7 L Total Bilirubin 0.4 AST 25 ALT 18 Alkaline Phosphatase 104 Creatine Kinase 37 CK-MB (CK-2) 7.1 H* CK-MB (CK-2) % 19.19 H Troponin I 0.09 H* B-Natriuretic Peptide 1410.0 H* Serum Total Protein 5.7 L Albumin 2.9 L Globulin 2.8 Albumin/Globulin Ratio 1.0 L TSH 8.12 H Urine Color Urine Appearance Urine pH Ur Specific [place] Urine Protein Urine Glucose (UA) Urine Ketones Urine Blood Urine Nitrite Urine Bilirubin Urine Urobilinogen Ur Leukocyte Esterase Urine RBC Urine WBC Ur Epithelial Cells Amorphous Sediment Urine Bacteria Hyaline Casts 09/30/19 09/30/19 09/30/19 08:50 08:50 09:20 WBC RBC Hgb Hct MCV MCH MCHC RDW Plt Count MPV Absolute Neuts (auto) Absolute Lymphs (auto) Absolute Monos (auto) Absolute Eos (auto) Absolute Basos (auto) Neutrophils % Lymphocytes % Monocytes % Eosinophils % Basophils % PT 10.9 INR 1.10 PTT (SP) 18.2 L D-Dimer, Quantitative 602 H* pCO2 pO2 HCO3 ABG pH ABG O2 Saturation ABG Base Excess ABG Deoxyhemoglobin Oxyhemoglobin % Carboxyhemoglobin % Methemoglobin % Sat Calc Total Hemoglobin Sodium Potassium Chloride Carbon Dioxide Anion Gap BUN Creatinine BUN/Creatinine Ratio Random Glucose Serum Osmolality Lactic Acid 3.4 H* Calcium Magnesium Total Bilirubin AST ALT Alkaline Phosphatase Creatine Kinase CK-MB (CK-2) CK-MB (CK-2) % Troponin I B-Natriuretic Peptide Serum Total Protein Albumin Globulin Albumin/Globulin Ratio TSH Urine Color Yellow Urine Appearance Cloudy Urine pH 5.5 Ur Specific [place] 1.020 Urine Protein Trace Urine Glucose (UA) Negative Urine Ketones Negative Urine Blood Negative Urine Nitrite Negative Urine Bilirubin Negative Urine Urobilinogen 0.2 Ur Leukocyte Esterase Small H Urine RBC 0-1 Urine WBC 3-5 H Ur Epithelial Cells 1-3 Amorphous Sediment 2+ Urine Bacteria 1+ Hyaline Casts 0-1 09/30/19 09:32 WBC RBC Hgb Hct MCV MCH MCHC RDW Plt Count MPV Absolute Neuts (auto) Absolute Lymphs (auto) Absolute Monos (auto) Absolute Eos (auto) Absolute Basos (auto) Neutrophils % Lymphocytes % Monocytes % Eosinophils % Basophils % PT INR PTT (SP) D-Dimer, Quantitative pCO2 pO2 HCO3 ABG pH ABG O2 Saturation ABG Base Excess ABG Deoxyhemoglobin Oxyhemoglobin % Carboxyhemoglobin % Methemoglobin % Sat Calc Total Hemoglobin Sodium Potassium 7.4 H* Chloride Carbon Dioxide Anion Gap BUN Creatinine BUN/Creatinine Ratio Random Glucose Serum Osmolality Lactic Acid Calcium Magnesium Total Bilirubin AST ALT Alkaline Phosphatase Creatine Kinase CK-MB (CK-2) CK-MB (CK-2) % Troponin I B-Natriuretic Peptide Serum Total Protein Albumin Globulin Albumin/Globulin Ratio TSH Urine Color Urine Appearance Urine pH Ur Specific [place] Urine Protein Urine Glucose (UA) Urine Ketones Urine Blood Urine Nitrite Urine Bilirubin Urine Urobilinogen Ur Leukocyte Esterase Urine RBC Urine WBC Ur Epithelial Cells Amorphous Sediment Urine Bacteria Hyaline Casts Departure - Departure Clinical Impression: Acute pulmonary edema, Lactic acidosis, Hyperkalemia, Angina at rest Acute exacerbation of CHF (congestive heart failure) Qualifiers: Heart failure type: combined systolic and diastolic Qualified Code(s): I50.43 - Acute on chronic combined systolic (congestive) and diastolic (congestive) heart failure Right lower lobe pneumonia Qualifiers: Pneumonia type: due to unspecified organism Qualified Code(s): J18.9 - Pneumonia, unspecified organism Disposition: Transfer to Hospital Departure Forms: ED Discharge - Pt. Copy, Patient Portal Self Enrollment Referrals: Sky Galeana MD [Primary Care Provider] - 1-2 Weeks Home Medications: Ambulatory Orders Aspirin [Joseph Low Dose] 81 mg PO DAILY 05/02/17 Calcium Citrate-Vitamin D [Calcium Citrate/Vitamin D] 1 tab PO DAILY 05/02/17 Cholecalciferol [Vitamin D3] 2,000 unit PO DAILY 05/02/17 Potassium Chloride [Micro-K] 40 meq PO BID 05/02/17 Pravastatin Sodium 20 mg PO BEDTIME 05/02/17 Acetaminophen 650 mg PO Q4H PRN MDD 3000 mg 09/22/19 Albuterol Inhaler 90 mcg INH Q4H PRN 09/22/19 Prilosec 20 mg PO DAILY 09/22/19 Sodium Chloride 2 gm PO BID 09/22/19 Transfer to Outside Facility - Transfer Information Decision to Transfer Date: 09/30/19 Decision to Transfer Time: 10:28 Reason for Transfer: required specialist not available Accepting Provider:: dr baca Accepting Facility: [facility]
[2019-09-30] MEDS ORDERED: METOPROLOL TARTRATE INJ 5 MG/5 ML VIAL IV ONE (10:37)
[2019-09-30] MEDS ORDERED: MAGNESIUM SULFATE PREMIX 2GM 2 GM in PREMIX BAG 1 BAG IVPB ONE (10:40)
[2019-09-30] MEDS ORDERED: diltiaZEM DRIP 125 MG/25 ML VIAL IVPB ONE (10:41)
[2019-09-30] MEDS ORDERED: MAGNESIUM SULFATE PREMIX 2GM 50 ML IVPB ONE (10:49)
[2019-09-30 11:02] VITALS: TEMP 97.2; O2SAT 96
[2019-09-30] MEDS ORDERED: SODIUM CHLORIDE 0.9% 1000ML 1,000 ML ONE (11:25)
[2019-09-30] MEDS ORDERED: SODIUM CHLORIDE 0.9% 1000ML 500 ML IVS ONE (11:45)
[2019-09-30 12:03] VITALS: BP 102/74
== END 2019-09-30 11:50 | disposition short-term general hospital (02) ==
LOC: ER 07:20
DX: I50.43 Acute on chronic combined systolic (congestive) and diastolic (congestive) heart failure (principal); J18.9 Pneumonia, unspecified organism; I20.9 Angina pectoris, unspecified; E87.2 Acidosis; E87.5 Hyperkalemia; F03.90 Unspecified dementia, unspecified severity, without behavioral disturbance, psychotic disturbance, mood disturbance, and anxiety; F17.200 Nicotine dependence, unspecified, uncomplicated; I10 Essential (primary) hypertension; J44.9 Chronic obstructive pulmonary disease, unspecified; Z79.82 Long term (current) use of aspirin
CPT/HCPCS: 36415; 71045; 80053; 81001; 82550; 82553; 82803; 82805; 83605; 83735; 83880; 84132; 84443; 84484; 85025; 85379; 85610; 85730; 87040; 87086; 87502; 93005; A4216; J0696; J1644; J1940; J3475; J7030; J7050

== ENCOUNTER 2019-10-31 12:25 | Emergency (ER) | payer MEDICARE ==
[2019-10-31 12:50] VITALS: TEMP 96.9; O2SAT 97
[2019-10-31] MEDS ORDERED: SODIUM CHLORIDE 0.9% (FLUSH) 10 ML SYG IV PRN (12:59)
[2019-10-31] MEDS ORDERED: IPRATROPIUM/ALBUTEROL 3 ML VIAL NEB ONE (14:07)
[2019-10-31] MEDS ORDERED: ALBUTEROL SULFATE 2.5 MG/3 ML VIAL NEB ONE (14:07)
--- NOTE | 2019-10-31 14:10 | ED.PDOC ---
History of Present Illness - General Chief Complaint: Neuro Symptoms/Deficits Stated Complaint: Long-Term reports confusion and hallucinations Time Seen by Provider: 10/31/19 12:59 Source: patient, RN notes reviewed, Vital Signs reviewed Exam Limitations: no limitations - History of Present Illness Initial Comments: Patient is a 74-year-old white female who presents from alf with complaints of by the alf of a fall with altered mental status and confusion. On arrival here patient denies having any fall. She is ANO x3. Is able answer all my questions without difficulty. Patient denies any pain. She does state that she has had hallucinations in the past but her last hallucination was a few days ago. Patient denies any chest pain, shortness of breath, dizziness, headaches, nausea, vomiting, diarrhea, dysuria. Patient complains of generalized weakness which forces her to be wheelchair-bound. Patient knows that she is anemic and will need a transfusion and that she has had multiple colonoscopies in the past looking for a bleeding source. Patient denies any problems at this time. Timing/Duration: unsure Severity: mild Improving Factors: nothing Worsening Factors: nothing Associated Symptoms: weakness Allergies/Adverse Reactions: Allergies NO KNOWN ALLERGY Allergy (Verified 09/08/19 19:20) Home Medications: Ambulatory Orders Aspirin [Joseph Low Dose] 81 mg PO DAILY 05/02/17 Calcium Citrate-Vitamin D [Calcium Citrate/Vitamin D] 1 tab PO DAILY 05/02/17 Cholecalciferol [Vitamin D3] 2,000 unit PO DAILY 05/02/17 Potassium Chloride [Micro-K] 40 meq PO BID 05/02/17 Pravastatin Sodium 20 mg PO BEDTIME 05/02/17 Acetaminophen 650 mg PO Q4H PRN MDD 3000 mg 09/22/19 Albuterol Inhaler 90 mcg INH Q4H PRN 09/22/19 Prilosec 20 mg PO DAILY 09/22/19 Sodium Chloride 2 gm PO BID 09/22/19 Review of Systems - Review of Systems Constitutional: States: see HPI, malaise, weakness. Denies: chills, fever EENTM: States: no symptoms reported. Denies: eye pain, blurred vision, throat swelling Respiratory: States: no symptoms reported. Denies: cough, short of breath, stridor, wheezing Cardiology: States: no symptoms reported. Denies: chest pain, palpitations, syncope Gastrointestinal/Abdominal: States: no symptoms reported. Denies: abdominal pain, diarrhea, nausea, vomiting Genitourinary: States: no symptoms reported. Denies: dysuria, frequency Musculoskeletal: States: no symptoms reported. Denies: back pain, neck pain Skin: States: no symptoms reported. Denies: change in color, rash Neurological: States: see HPI, weakness. Denies: headache, numbness, paresthesia Endocrine: States: no symptoms reported Hematologic/Lymphatic: States: no symptoms reported All other Systems: No Change from Baseline Past Medical History (General) - Patient Medical History Hx Seizures: No Hx Stroke: No Hx Dementia: No Hx Asthma: No Hx of COPD: Yes Hx Cardiac Disorders: No Hx Congestive Heart Failure: Yes Hx Pacemaker: No Hx Hypertension: Yes Hx Thyroid Disease: No Hx Diabetes: No Hx Gastroesophageal Reflux: No Hx Renal Disease: No Hx Cancer: No Hx of HIV: No Hx Hepatitis C: No Hx MRSA: No - Vaccination History Hx Tetanus, Diphtheria Vaccination: - unknown Hx Influenza Vaccination: Yes Hx Pneumococcal Vaccination: Yes - Social History Hx Tobacco Use: Yes - quit 3 yrs ago Hx Chewing Tobacco Use: No Hx Alcohol Use: No Hx Substance Use: No Hx Substance Use Treatment: No Hx Depression: No Hx Physical Abuse: No Hx Emotional Abuse: No Hx Suspected Abuse: No - Female History Patient is a Female of Child Bearing Age (10 -59 yrs old): No Patient : No Family Medical History - Family History Mother Family History: Unknown Living Status: Cause of : Colon CA Hx Cardiac Disease: Yes - dad Hx Family Cancer: Yes - mom Physical Exam - Physical Exam General Appearance: Alert, Comfortable, No apparent distress, Well Developed, Well Groomed, Well Hydrated, Well Nourished Eye Exam: bilateral normal Ears, Nose, Throat: hearing grossly normal, normal ENT inspection, normal pharynx Neck: non-tender, full range of motion, supple, normal inspection Respiratory: chest non-tender, lungs clear, normal breath sounds, no respiratory distress, no accessory muscle use Cardiovascular/Chest: normal peripheral pulses, no edema, no gallop, no JVD, no murmur, tachycardia Peripheral Pulses: radial,right: 2+, radial,left: 2+ Gastrointestinal/Abdominal: normal bowel sounds, non tender, soft Back Exam: no CVA tenderness, no vertebral tenderness Extremity: non-tender, pedal edema - Mild Neurologic: collar padder blindstitch II-XII nml as tested, no motor/sensory deficits, alert, normal mood/affect, oriented x 3 Skin Exam: warm/dry, pallor Lymphatic: no adenopathy Progress - Progress Progress: Differential diagnosis: UTI, anemia, electrolyte imbalance, CVA among others. 10/31/19 15:32 Patient continues to be ANO x3. Laboratory work is relatively unremarkable except for the anemia as well as the low sodium which I attribute to the Lasix she is taking. Urine does not show any acute infection. Plan on discharge back to the alf at this time. They can arrange outpatient infusion for blood transfusion. I discussed this plan of care with the patient and she voices understanding and agreement. Sourav Blackwell M.D. #[id number] - Results/Orders Results/Orders: 10/31/19 12:59 IV Care:Saline Lock per Protoc QSHIFT Telemetry .ONCE Sodium Chloride 0.9% (Flush) [Saline Flush Syringe] 10 ml IV PRN PRN EKG Assessment ONCE Pulse Oximetry Assessment DAILY 10/31/19 13:00 EKG STAT 11/01/19 09:00 Pulse Ox Daily Laboratory Results - last 24 hr 10/31/19 10/31/19 10/31/19 13:35 13:35 13:35 WBC 7.4 RBC 3.20 L Hgb 8.6 L Hct 26.3 L MCV 82.0 MCH 26.9 L MCHC 32.8 L RDW 19.7 H Plt Count 426 H MPV 8.4 Absolute Neuts (auto) 5.30 Absolute Lymphs (auto) 1.40 Absolute Monos (auto) 0.50 Absolute Eos (auto) 0.10 Absolute Basos (auto) 0.10 Neutrophils % 72.2 Lymphocytes % 19.4 L Monocytes % 6.2 Eosinophils % 1.1 Basophils % 1.1 Normal RBC Morphology Stain quality accept Sodium 129 L Potassium 3.6 Chloride 89 L Carbon Dioxide 28 Anion Gap 15.6 BUN 10 Creatinine 0.70 BUN/Creatinine Ratio 14.3 Random Glucose 71 Serum Osmolality 256.5 L Lactic Acid 1.6 Calcium 8.6 Total Bilirubin 0.5 AST 31 ALT 21 Alkaline Phosphatase 86 Troponin I B-Natriuretic Peptide 317.0 H* Serum Total Protein 5.4 L Albumin 2.7 L Globulin 2.7 Albumin/Globulin Ratio 1.0 L Urine Color Urine Appearance Urine pH Ur Specific [place] Urine Protein Urine Glucose (UA) Urine Ketones Urine Blood Urine Nitrite Urine Bilirubin Urine Urobilinogen Ur Leukocyte Esterase Urine RBC Urine WBC Ur Epithelial Cells Urine Bacteria Urine Mucus Stool Occult Blood 10/31/19 10/31/19 10/31/19 13:35 14:34 14:34 WBC RBC Hgb Hct MCV MCH MCHC RDW Plt Count MPV Absolute Neuts (auto) Absolute Lymphs (auto) Absolute Monos (auto) Absolute Eos (auto) Absolute Basos (auto) Neutrophils % Lymphocytes % Monocytes % Eosinophils % Basophils % Normal RBC Morphology Sodium Potassium Chloride Carbon Dioxide Anion Gap BUN Creatinine BUN/Creatinine Ratio Random Glucose Serum Osmolality Lactic Acid Calcium Total Bilirubin AST ALT Alkaline Phosphatase Troponin I < 0.02 B-Natriuretic Peptide Serum Total Protein Albumin Globulin Albumin/Globulin Ratio Urine Color Yellow Urine Appearance Clear Urine pH 7.5 Ur Specific [place] 1.020 Urine Protein Negative Urine Glucose (UA) Negative Urine Ketones Negative Urine Blood Trace-intact H Urine Nitrite Negative Urine Bilirubin Negative Urine Urobilinogen 0.2 Ur Leukocyte Esterase Trace H Urine RBC 0-1 Urine WBC 1-3 Ur Epithelial Cells 0-1 Urine Bacteria 1+ Urine Mucus Trace Stool Occult Blood Positive EXAM DESCRIPTION: Chest,1 View CLINICAL HISTORY: confusion COMPARISON: 30 September 2019 TECHNIQUE: AP portable chest FINDINGS: An enlarging right pleural effusion is observed. The heart is within range of normal. The left chest is clear. Right basilar atelectatic type lung disease is noted. IMPRESSION: An enlarging right pleural effusion is noted. Electronically signed by: Sumeet Bonilla MD 10/31/2019 3:22 PM EKG performed 31 Oct 2019 at 1242 hrs.: Normal sinus rhythm at 74 bpm, normal axis deviation, nonspecific T wave abnormalities laterally, abnormal EKG. No previous EKG available for comparison at this time. Vital Signs 10/31/19 10/31/19 12:42 12:50 Temperature 96.9 F L Pulse Rate [ 107 H 84 monitor] Respiratory 22 22 Rate Blood Pressure 132/69 [RA] O2 Sat by Pulse 97 Oximetry - EKG/XRAY/CT CT Ordered: No CT Interpretation Call Back: No Departure - Departure Clinical Impression: Hyponatremia with decreased serum osmolality, Rectal bleeding Anemia Qualifiers: Anemia type: other cause Other causes of anemia: other cause, not classified Qualified Code(s): D64.89 - Other specified anemias Time of Disposition: 15:41 Disposition: Discharge to Home or Self Care Condition: Good Departure Forms: ED Discharge - Pt. Copy, Patient Portal Self Enrollment Instructions: Normocytic Normochromic Anemia (DC), Hyponatremia (DC) Diet: resume usual diet Activity: increase activity as tolerated Referrals: Sky Galeana MD [Primary Care Provider] - 1-5 Days Home Medications: Ambulatory Orders Aspirin [Joseph Low Dose] 81 mg PO DAILY 05/02/17 Calcium Citrate-Vitamin D [Calcium Citrate/Vitamin D] 1 tab PO DAILY 05/02/17 Cholecalciferol [Vitamin D3] 2,000 unit PO DAILY 05/02/17 Potassium Chloride [Micro-K] 40 meq PO BID 05/02/17 Pravastatin Sodium 20 mg PO BEDTIME 05/02/17 Acetaminophen 650 mg PO Q4H PRN MDD 3000 mg 09/22/19 Albuterol Inhaler 90 mcg INH Q4H PRN 09/22/19 Prilosec 20 mg PO DAILY 09/22/19 Sodium Chloride 2 gm PO BID 09/22/19
--- NOTE | 2019-10-31 15:23 | RAD ---
EXAM DESCRIPTION: Chest,1 View CLINICAL HISTORY: confusion COMPARISON: 30 September 2019 TECHNIQUE: AP portable chest FINDINGS: An enlarging right pleural effusion is observed. The heart is within range of normal. The left chest is clear. Right basilar atelectatic type lung disease is noted. IMPRESSION: An enlarging right pleural effusion is noted. Electronically signed by: Sumeet Bonilla MD 10/31/2019 3:22 PM CDT
[2019-10-31 16:20] VITALS: BP 151/83
== END 2019-10-31 16:20 | disposition home or self-care (01) ==
LOC: ER 12:25
DX: E87.1 Hypo-osmolality and hyponatremia (principal); K62.5 Hemorrhage of anus and rectum; D64.89 Other specified anemias; I10 Essential (primary) hypertension; J44.9 Chronic obstructive pulmonary disease, unspecified; I50.9 Heart failure, unspecified; Z79.82 Long term (current) use of aspirin; Z87.891 Personal history of nicotine dependence
CPT/HCPCS: 36415; 71045; 80053; 81001; 82270; 83605; 83880; 84484; 85025; 93005; J7611; J7620

== ENCOUNTER 2019-11-11 19:52 | Emergency (ER) | payer MEDICARE ==
[2019-11-11] MEDS ORDERED: SODIUM CHLORIDE 0.9% (FLUSH) 10 ML SYG IV PRN (20:09)
--- NOTE | 2019-11-11 20:11 | ED.PDOC ---
History of Present Illness - General Chief Complaint: General Time Seen by Provider: 11/11/19 20:09 Source: patient, group home records - History of Present Illness Initial Comments: 74 yo female with PMH of COPD, dementia who presents from [facility] with CC of shortness of breath and low blood counts. Patient is poor historian. She reports that "the place where I work "sent her up here to have a blood transfusion. ED nurse reports that apparently she had a low hemoglobin level of 7.2 10 days ago and the repeat today was down to 6.8 so she was sent to the ED for evaluation. Patient also reports that she has been having some shortness of breath for the past couple of days and some intermittent chest pains but not having chest pain currently. Reports dyspnea has moderate, worse with activity, taking some breathing treatments with moderate relief. Also reports productive cough intermittently, unsure which color of phlegm. Denies any fevers, chills, abdominal pain, nausea, vomiting, diarrhea, melena, hematochezia, hematemesis, urinary symptoms, leg swelling. PCP is Dr. Mak. Allergies/Adverse Reactions: Allergies NO KNOWN ALLERGY Allergy (Verified 11/11/19 21:10) Home Medications: Ambulatory Orders RX: Aspirin [Joseph Low Dose] 81 mg PO DAILY 05/02/17 RX: Pravastatin Sodium 20 mg PO BEDTIME 05/02/17 Acetaminophen 650 mg PO Q4H PRN MDD 3000 mg 09/22/19 Albuterol Inhaler 90 mcg INH Q4H PRN 09/22/19 Sodium Chloride 2 gm PO BID 09/22/19 Apixaban [Eliquis] 5 mg PO BID 11/11/19 Calcium Carbonate-Vitamin D [Calcium + D3 600-200 mg-Unit] 1 tab PO DAILY 11/11/19 Docusate Sodium [Colace Cap] 100 mg PO BID 11/11/19 Mirtazapine [Remeron] 15 mg PO BEDTIME 11/11/19 Potassium Chloride [K-Tab] 20 meq PO BID 11/11/19 RX: Amiodarone HCl 200 mg PO DAILY 11/11/19 RX: Ferrous Sulfate 325 mg PO DAILY 11/11/19 RX: Furosemide 40 mg PO DAILY 11/11/19 RX: Lisinopril 2.5 mg PO DAILY 11/11/19 RX: Melatonin 3 mg PO BEDTIME 11/11/19 RX: Metoprolol Tartrate 25 mg PO BID 11/11/19 Sodium Phosphates [Enema] 1 arthur PA DAILY 11/11/19 Review of Systems - Review of Systems Review of Systems: 11/11/19 20:56 as per HPI All other Systems: Reviewed and Negative Past Medical History (General) - Patient Medical History Hx Seizures: No Hx Stroke: No Hx Dementia: No Hx Asthma: No Hx of COPD: Yes Hx Cardiac Disorders: No Hx Congestive Heart Failure: Yes Hx Pacemaker: No Hx Hypertension: Yes Hx Thyroid Disease: No Hx Diabetes: No Hx Gastroesophageal Reflux: No Hx Renal Disease: No Hx Cancer: No Hx of HIV: No Hx Hepatitis C: No Hx MRSA: No - Vaccination History Hx Tetanus, Diphtheria Vaccination: - unknown Hx Influenza Vaccination: Yes Hx Pneumococcal Vaccination: Yes - Social History Hx Tobacco Use: Yes - quit 3 yrs ago Hx Chewing Tobacco Use: No Hx Alcohol Use: No Hx Substance Use: No Hx Substance Use Treatment: No Hx Depression: No Hx Physical Abuse: No Hx Emotional Abuse: No Hx Suspected Abuse: No - Female History Patient : No Family Medical History - Family History Mother Family History: Unknown Living Status: Cause of : Colon CA Hx Cardiac Disease: Yes - dad Hx Family Cancer: Yes - mom Physical Exam - Physical Exam General Appearance: Alert, Comfortable, No apparent distress Eye Exam: bilateral normal Ears, Nose, Throat: normal ENT inspection, normal pharynx Neck: non-tender, full range of motion, supple, normal inspection Respiratory: other - Diminished breath sounds with end expiratory wheezes throughout, no focal crackles noted Cardiovascular/Chest: normal peripheral pulses, regular rate, rhythm, no JVD, no murmur Peripheral Pulses: radial,right: 2+, radial,left: 2+ Gastrointestinal/Abdominal: non tender, soft, no organomegaly Back Exam: normal inspection, no CVA tenderness, no vertebral tenderness Extremity: normal range of motion, non-tender, normal inspection, pedal edema - Trace BL LE pitting edema Neurologic: photograph retoucher II-XII nml as tested, no motor/sensory deficits, alert, normal mood/affect Skin Exam: normal color, warm/dry Progress - Progress Progress: 11/11/19 19:58 Dyspnea, anemia -Consider COPD exacerbation very likely. Consider also chronic deficiency anemia versus blood loss anemia. Consider also pneumonia, ACS, CHF, other. -Patient does have hypoxia on room air upon arrival (takes chronically PRN at [place]) and wheezes with diminished breath sounds throughout. Otherwise pretty stable. -Obtain blood work and cardiac work-up, place PIV, will give DuoNeb treatment and Solu-Medrol 80 mg IV, reassess 11/12/19 00:34 -Patient has markedly improved with ED treatment of duo nebs and IV Solu-Medrol. Lab work reveals H/H of 7.1/21.7 with MCV of 82 and PLT count of 413,000. Lab work is otherwise largely unremarkable, WBC WNL, troponin WNL. -Chest x-ray does reveal some small right-sided pleural effusion with question of surrounding infiltrate versus atelectasis, largely unchanged from 10/31/2019 chest x-ray per my read. I suspect that this is some small fluid buildup/pleural effusion from her CHF and likely noninfectious in nature. However given her presentation which is consistent with acute COPD exacerbation with productive cough, will treat with oral Levaquin 500 mg daily for 1 week, first dose here. Will also recommend continued scheduled nebulized albuterol every 4 hours for the next 24 hours and then may spaced to every 4 hours as needed. We will also give a Rx of prednisone 60 mg once daily for 5 days. I did discuss the patient with the on-call hospitalist, Darwin Camarena, regarding possible admission given her COPD exacerbation and anemia. However, as she has markedly recovered from a COPD standpoint and her hemoglobin level is 7.1 today, compared to the reported 7.2 last week and she is without active evidence of ongoing rapid blood loss, I suspect that this is largely chronic in nature. Further, given the current blood bank shortage, he feels she would likely not qualify for a blood transfusion at this point. Her fecal occult blood test is positive. Will defer to the PCP for further outpatient management and evaluation. As for now patient may continue her daily baby aspirin and Eliquis, but if her hemoglobin continues to drop or if she develops more rapid GI bleeding/melena, the anticoagulation and aspirin may need to be held or discontinued. Darwin Camarena will discuss the patient with Dr. Mak tomorrow and repeat evaluation and blood work in the next few days. -DC back to [facility] in fair stable condition, return warnings discussed Scott Martinez MD Billing #[id number] 11/11/19 20:09 Sodium Chloride 0.9% (Flush) [Saline Flush Syringe] 10 ml IV PRN PRN 11/11/19 20:10 IV Care:Saline Lock per Protoc QSHIFT Telemetry .ONCE Pulse Oximetry Assessment DAILY 11/11/19 20:15 EKG STAT 11/12/19 09:00 Pulse Ox Daily Laboratory Results - last 24 hr 11/11/19 11/11/19 11/11/19 20:32 20:32 20:32 WBC 5.9 RBC 2.63 L Hgb 7.1 L* Hct 21.7 L MCV 82.4 MCH 27.0 MCHC 32.7 L RDW 19.8 H Plt Count 413 H MPV 8.5 Absolute Neuts (auto) 3.30 Absolute Lymphs (auto) 1.70 Absolute Monos (auto) 0.60 Absolute Eos (auto) 0.20 Absolute Basos (auto) 0.10 Neutrophils % 55.3 Lymphocytes % 29.2 Monocytes % 10.3 H Eosinophils % 2.9 Basophils % 2.3 H Sodium 134 L Potassium 4.1 Chloride 95 L Carbon Dioxide 32 H Anion Gap 11.1 L BUN 13 Creatinine 1.00 BUN/Creatinine Ratio 13.0 Random Glucose 82 Serum Osmolality 267.4 L Calcium 8.0 L Total Bilirubin 0.4 AST 22 ALT 17 Alkaline Phosphatase 78 Troponin I < 0.02 B-Natriuretic Peptide 187.0 H Serum Total Protein 4.6 L Albumin 2.1 L Globulin 2.5 Albumin/Globulin Ratio 0.8 L Stool Occult Blood 11/11/19 21:31 WBC RBC Hgb Hct MCV MCH MCHC RDW Plt Count MPV Absolute Neuts (auto) Absolute Lymphs (auto) Absolute Monos (auto) Absolute Eos (auto) Absolute Basos (auto) Neutrophils % Lymphocytes % Monocytes % Eosinophils % Basophils % Sodium Potassium Chloride Carbon Dioxide Anion Gap BUN Creatinine BUN/Creatinine Ratio Random Glucose Serum Osmolality Calcium Total Bilirubin AST ALT Alkaline Phosphatase Troponin I B-Natriuretic Peptide Serum Total Protein Albumin Globulin Albumin/Globulin Ratio Stool Occult Blood Positive - EKG/XRAY/CT EKG: Sinus - NSR, HR 60, no ST elevations or Q waves, nonspecific T wave inversions noted in anteroseptal leads, axis normal, intervals normal, compared to 09/30/2019 EKG sinus tachycardia is now resolved, compared to 05/02/2017 EKG appears largely unchanged. XRAY: chest Departure - Departure Clinical Impression: COPD exacerbation, Chronic anemia, Occult blood in stools Time of Disposition: 00:18 Disposition: Discharge to SNF Condition: Fair Departure Forms: ED Discharge - Pt. Copy, Patient Portal Self Enrollment Instructions: Chronic Obstructive Pulmonary Disease (COPD) (DC), Anemia Caused by Low Iron, Adult (DC) Diet: resume usual diet Activity: as per physical therapy, increase activity as tolerated Referrals: Sky Galeana MD [Primary Care Provider] - 1-5 Days Home Medications: Ambulatory Orders RX: Aspirin [Joseph Low Dose] 81 mg PO DAILY 05/02/17 RX: Pravastatin Sodium 20 mg PO BEDTIME 05/02/17 Acetaminophen 650 mg PO Q4H PRN MDD 3000 mg 09/22/19 Albuterol Inhaler 90 mcg INH Q4H PRN 09/22/19 Sodium Chloride 2 gm PO BID 09/22/19 Apixaban [Eliquis] 5 mg PO BID 11/11/19 Calcium Carbonate-Vitamin D [Calcium + D3 600-200 mg-Unit] 1 tab PO DAILY 11/11/19 Docusate Sodium [Colace Cap] 100 mg PO BID 11/11/19 Mirtazapine [Remeron] 15 mg PO BEDTIME 11/11/19 Potassium Chloride [K-Tab] 20 meq PO BID 11/11/19 RX: Amiodarone HCl 200 mg PO DAILY 11/11/19 RX: Ferrous Sulfate 325 mg PO DAILY 11/11/19 RX: Furosemide 40 mg PO DAILY 11/11/19 RX: Lisinopril 2.5 mg PO DAILY 11/11/19 RX: Melatonin 3 mg PO BEDTIME 11/11/19 RX: Metoprolol Tartrate 25 mg PO BID 11/11/19 Sodium Phosphates [Enema] 1 arthur PA DAILY 11/11/19 Additional Instructions: Continue using your home albuterol nebulized inhaler every 4 hours scheduled for the next 24 hours and then you may space to every 4 hours as needed. Take the prednisone as prescribed for COPD exacerbation. Return to the ED if you develop any worsening of symptoms or new concerning symptoms such as rectal bleeding, large volume of dark/black stools, worsening chest pain or shortness of breath, fevers, etc. Follow-up with your primary care physician in the next 1 to 5 days for repeat evaluation of your COPD exacerbation and anemia and finding of occult blood in the stool during this ED visit. Continue taking your baby aspirin and Eliquis for now until further direction from your PCP.
--- NOTE | 2019-11-11 20:45 | RAD ---
EXAM DESCRIPTION: XR CHEST, 1 VIEW CLINICAL HISTORY: dyspnea TECHNIQUE: Single frontal view of the chest is submitted. COMPARISON: 10/31/2019 FINDINGS: Heart: The cardiothoracic silhouette is within normal limits. Lungs: Persistent right basilar opacification without significant interval change. Mediastinum: Thoracic aortic atherosclerosis. Pleura: Blunting of the right costophrenic angle similar to the prior. No pneumothorax. Bones: Intact Upper abdomen: Unremarkable IMPRESSION: Similar findings to the prior thought to reflect a combination of a small right pleural effusion and underlying consolidation (atelectasis and/or infiltrate). Electronically signed by: Lynn Rosado MD 11/11/2019 8:44 PM CDT
[2019-11-11] MEDS ORDERED: IPRATROPIUM/ALBUTEROL 3 ML VIAL NEB ONE ×2 (20:53→21:53)
[2019-11-11] MEDS ORDERED: methylPREDNISolone SODIUM SUC 125 MG/2 ML VIAL IV ONE (20:53)
[2019-11-12] MEDS ORDERED: levoFLOXacin 500 MG TAB PO ONE (00:33)
[2019-11-12] MEDS ORDERED: FAMOTIDINE IV PREMIX 20 MG in PREMIX BAG 1 BAG IVPB ONE (11:15)
--- NOTE | 2019-11-12 11:25 | ED.PDOC ---
History of Present Illness - General Chief Complaint: General Stated Complaint: anemia,weakness Time Seen by Provider: 11/12/19 11:02 Source: patient Exam Limitations: no limitations - History of Present Illness Initial Comments: PT WAS SEEN IN ER YESTERDAY FOR COPD EXACERBATION. PT STATES HER RESPIRATORY IS MUCH BETTER TODAY. ER NOTED HGB WAS 6.8 YESTERDAY. HOSPITALIST DID NOT FEEL NEEDED ADMISSION. PCP TODAY HAD PT SENT BACK TO ER FOR ANEMIA. IS ON ASA AND ELIQUIS FOR H/O AFIB. NO AFIB TODAY. PT STATES SHE HAD COLONOSCOPY 2-3 YRS AGO. HER PARENT FROM COLON CANCER. Timing/Duration: constant Severity: severe Improving Factors: nothing Worsening Factors: nothing Associated Symptoms: denies symptoms Allergies/Adverse Reactions: Allergies NO KNOWN ALLERGY Allergy (Verified 11/11/19 21:10) Home Medications: Ambulatory Orders Aspirin [Joseph Low Dose] 81 mg PO DAILY 05/02/17 Pravastatin Sodium 20 mg PO BEDTIME 05/02/17 Acetaminophen 650 mg PO Q4H PRN MDD 3000 mg 09/22/19 Albuterol Inhaler 90 mcg INH Q4H PRN 09/22/19 Sodium Chloride 2 gm PO BID 09/22/19 Amiodarone HCl 200 mg PO DAILY 11/11/19 Apixaban [Eliquis] 5 mg PO BID 11/11/19 Calcium Carbonate-Vitamin D [Calcium + D3 600-200 mg-Unit] 1 tab PO DAILY 11/11/19 Docusate Sodium [Colace Cap] 100 mg PO BID 11/11/19 Ferrous Sulfate 325 mg PO DAILY 11/11/19 Furosemide 40 mg PO DAILY 11/11/19 Lisinopril 2.5 mg PO DAILY 11/11/19 Melatonin 3 mg PO BEDTIME 11/11/19 Metoprolol Tartrate 25 mg PO BID 11/11/19 Mirtazapine [Remeron] 15 mg PO BEDTIME 11/11/19 Potassium Chloride [K-Tab] 20 meq PO BID 11/11/19 Sodium Phosphates [Enema] 1 arthur MD DAILY 11/11/19 Review of Systems - Review of Systems Constitutional: States: no symptoms reported EENTM: States: no symptoms reported Respiratory: States: no symptoms reported Cardiology: States: no symptoms reported Gastrointestinal/Abdominal: States: no symptoms reported, other - DENIES MELENA. . Denies: abdominal pain Genitourinary: States: no symptoms reported Musculoskeletal: States: no symptoms reported Skin: States: no symptoms reported Neurological: States: no symptoms reported Endocrine: States: no symptoms reported Hematologic/Lymphatic: States: no symptoms reported All other Systems: Reviewed and Negative Past Medical History (General) - Patient Medical History Hx Seizures: No Hx Stroke: No Hx Dementia: No Hx Asthma: No Hx of COPD: Yes Hx Cardiac Disorders: No Hx Congestive Heart Failure: Yes Hx Pacemaker: No Hx Hypertension: Yes Hx Thyroid Disease: No Hx Diabetes: No Hx Gastroesophageal Reflux: No Hx Renal Disease: No Hx Cancer: No Hx of HIV: No Hx Hepatitis C: No Hx MRSA: No Surgical History: tonsillectomy, Hysterectomy - Vaccination History Hx Tetanus, Diphtheria Vaccination: - unknown Hx Influenza Vaccination: Yes Hx Pneumococcal Vaccination: Yes - Social History Hx Tobacco Use: Yes Hx Chewing Tobacco Use: No Hx Alcohol Use: No Hx Substance Use: No Hx Substance Use Treatment: No Hx Depression: No Hx Physical Abuse: No Hx Emotional Abuse: No Hx Suspected Abuse: No - Activities of Daily Living Senior Living/Assisted Living (if applicable):: [facility] - Female History Patient : No Family Medical History - Family History Mother Family History: Unknown Living Status: Cause of : Colon CA Hx Cardiac Disease: Yes - dad Hx Family Cancer: Yes - mom Physical Exam - Physical Exam General Appearance: Alert, No apparent distress Eye Exam: bilateral normal Ears, Nose, Throat: hearing grossly normal, normal ENT inspection Neck: non-tender, normal inspection Respiratory: lungs clear, no respiratory distress Cardiovascular/Chest: normal peripheral pulses, regular rate, rhythm Peripheral Pulses: radial,right: 1+, radial,left: 1+ Gastrointestinal/Abdominal: normal bowel sounds, non tender, soft, no organomegaly, no pulsatile mass Rectal Exam: normal rectal tone, other - NO HEMATOCHEZIA BUT POS STOOL VS DRIED BLOOD. Back Exam: normal inspection, no CVA tenderness, no vertebral tenderness Extremity: normal range of motion, normal inspection Neurologic: no motor/sensory deficits, alert Skin Exam: normal color, warm/dry Lymphatic: no adenopathy Progress - Progress Progress: 11/12/19 12:13 LABS PENDING. ONCE HGB RETURNS, IF STILL NEAR 7, WE WILL TRANSFUSE 2 UNTIS PRBC. FOBT OBTAINED AND SENT TO LAB. (WAS POS YESTERDAY.) GROSSLY NEG FOR HEMATOCHEZIA BUT GROSSLY POS FOR SCANT, BLACK, DRIED BLOOD VS STOOL. 11/12/19 12:15 LAB CALLED - HGB 6.3 TODAY. DISCHARGE FROM ER YESTERDAY WAS APPROPRIATE WITH CLOSE F/U AND GI REFERRRAL FOR COLONOSCOPY. TODAY HGB IS WORSE, THUS NEEDS TRANSFUSION, ADMISSION, AND GI (GEN SURG) CONSULT. GI BLEED PER POS GUIAC STOOL, ANEMIA, HYPOTENSION (93/52), FAMILY HX (PARENT) FOR COLON CANCER. HGB DECREASED FROM 6.8 YESTERDAY TO 6.3 TODAY, WHICH IS AN ACCURATE NUMBER NO IVF BOLUS HAS BEEN GIVEN YET. ORDERED PEPCID, TRANSFUSING 2 UNTS PRBC (NO LASIX IN BETWEEN THE UNITS, SHE IS HYPOTENSIVE). WILL CALL HOSPITALIST FOR ADMISSION AND CONSULT DR. RODRIGUEZ, GEN SURGEON, FOR POSSIBLE COLONOSCOPY. 11/12/19 12:21 11/12/19 13:27 I DID NOT CALL THE HOSPITALIST I WAS WAITING FOR ALL THE LABS TO RESULT. THE BLOODBANK CALLED ER AND SAID HOSPITALIST PLACED A STOP ON THE TRANSFUSION WE ARE LOW AND PT WILL NEED TO BE TRANSFERRED TO OTHER HOSPITALIST. HOSPITALIST, UMESH MORLEY, THEN CAME TO ER TO INFORM ME THAT BLOOD BANK IS LOW AND THAT HE TALKED WITH GEN SURGEON WHO DOES NOT DO COLONOSCOPY FOR GI BLEEDS. I EXPLAINED IT IS A STABLE, SLOW BLEED AND MY CONCERN IS SHE NEEDS C-SCOPE NOT TO STOP A GI BLEED BUT FOR CONCERN FOR COLON CANCER BASED ON ANEMIA (AND FH COLON CANCER ). [facility] WILL NOT ACCEPT ADMISSION DUE TO ABOVE, THUS I AM CALLING [facility] TO TRANSFER. SINCE I AM UNABLE TO TRANSFUSE PLANNED, I WILL START IVF 125 ML/HR TO SUPPORT HER BP. 11/12/19 13:35 I JUST TALKED WITH [facility] TRANSFER LINE. SHE IS TALKING WITH GI BLOCK HACKER, AND WILL CALL ME BACK. 11/12/19 14:[address] PARKER, HEDY, AT [facility]. HE DIDN'T FEEL TRANSFER WAS WARRANTED FOR PRBC AND I AGREE. PT IS HEMODYNAMICALLY STABLE AND DR. PARKER IS IN [place] TOMORROW, THUS HE SAID TO GIVE 1 UNIT PRBC AND GIVE FERRIC GLUCONATE 125 MG IV X 1, THEN HE WILL SEE PT TOMORROW IN OUTPT CLINIC IN [place] AND WILL SCOPE HER THIS WEEK. THIS IS APPROPRIATE CARE, GIVEN [facility] WILL NOT ADMIT THE PATIENT AND THAT THE PT IS STABLE AND GI WILL SEE PT TOMORROW. 11/12/19 14:10 EKG NSR. CBC - WBC 3. CMP AND COAGS NO CONCERNS. FOBT POS. UA = UTI, NITRITE, LEUK EST, WBC, BACT - ROCEPHIN. RX BACTRIM DS. SAFE FOR DC TO HOME AFTER 1 UNIT PRBC AND IRON, AND F/U WITH GI OUTPT APPT TOMORROW AND HE WILL SCOPE THIS WEEK. 11/12/19 14:16 LAB INFORMED ME PT'S BLOOD HAS ANTIBODIES, THUS NEEDS TO SEND BLOOD TO [facility], TEST IT, GET 2 UNITS BACK. IT WILL TAKE 6-8 HRS, THEN 4 HRS TO GIVE THE BLOOD. THUS I AM GOING TO CALL [facility] HOSPITALIST AGAIN TO SEE IF CAN ADMIT OBS, SINCE PT WILL NEED TO BE HERE 10 - 12 HRS FOR PRBC ADMINISTRATION. I TALKED WITH UMESH MORLEY, HOSPITALIST TRUCK SHOP MECHANIC, AGAIN AND EXPLAINED ABOVE TO HIM. HE IS WILLING TO ADMIT OBS FOR BLOOD TRANSFUSION. I APOLOGIZE FOR THE PROLONGED ER STAY. 11/12/19 14:30 THERE IS NO IRON IV (E.G. REFFOUS GLUCONATE 125 MG) ON FORMULARY, THUS GIVING PO. Departure - Departure Clinical Impression: Occult blood in stools, Rectal bleeding, Hypotension due to hypovolemia GI bleed Qualifiers: GI bleed type/associated pathology: anorectal hemorrhage Qualified Code(s): K62.5 - Hemorrhage of anus and rectum Anemia Qualifiers: Anemia type: unspecified type Qualified Code(s): D64.9 - Anemia, unspecified Leukopenia Qualifiers: Leukopenia type: lymphocytopenia Qualified Code(s): D72.810 - Lymphocytopenia UTI (urinary tract infection) Qualifiers: Urinary tract infection type: acute cystitis Hematuria presence: without hematuria Qualified Code(s): N30.00 - Acute cystitis without hematuria Disposition: Admit Patient Condition: Good Departure Forms: ED Discharge - Pt. Copy, Patient Portal Self Enrollment Referrals: Sky Galeana MD [Primary Care Provider] - 1-2 Weeks Home Medications: Ambulatory Orders Aspirin [Joseph Low Dose] 81 mg PO DAILY 05/02/17 Pravastatin Sodium 20 mg PO BEDTIME 05/02/17 Acetaminophen 650 mg PO Q4H PRN MDD 3000 mg 09/22/19 Albuterol Inhaler 90 mcg INH Q4H PRN 09/22/19 Sodium Chloride 2 gm PO BID 09/22/19 Amiodarone HCl 200 mg PO DAILY 11/11/19 Apixaban [Eliquis] 5 mg PO BID 11/11/19 Calcium Carbonate-Vitamin D [Calcium + D3 600-200 mg-Unit] 1 tab PO DAILY 11/11/19 Docusate Sodium [Colace Cap] 100 mg PO BID 11/11/19 Ferrous Sulfate 325 mg PO DAILY 11/11/19 Furosemide 40 mg PO DAILY 11/11/19 Lisinopril 2.5 mg PO DAILY 11/11/19 Melatonin 3 mg PO BEDTIME 11/11/19 Metoprolol Tartrate 25 mg PO BID 11/11/19 Mirtazapine [Remeron] 15 mg PO BEDTIME 11/11/19 Potassium Chloride [K-Tab] 20 meq PO BID 11/11/19 Sodium Phosphates [Enema] 1 arthur MD DAILY 11/11/19 Decision To Admit - Decistion To Admit Decision to Admit Reason: Admit from ER Decision to Admit Date: 11/12/19 Decision to Admit Time: 14:28
[2019-11-12] MEDS: SODIUM CHLORIDE 0.9% (FLUSH) 10 ML SYG IV PRN ×2 (12:07→13:42)
[2019-11-12] MEDS ORDERED: cefTRIAXone SODIUM 1 GM in SODIUM CHL 0.9% 50ML MIN-BAG+ 50 ML IVPB ONE (13:24)
[2019-11-12] MEDS ORDERED: SODIUM CHLORIDE 0.9% 1000ML 1,000 ML IVS PRN (13:26)
[2019-11-12] MEDS: SODIUM CHLORIDE 0.9% 1000ML 1,000 ML IVS PRN ×2 (13:40→21:23)
--- NOTE | 2019-11-12 14:39 | HP ---
SUPERVISING PHYSICIAN: : Sky Galeana MD CHIEF COMPLAINT: Generalized weakness, anemia. HISTORY OF PRESENT ILLNESS: Ms. Sheppard is a 74 year-old female patient who has a history of atrial fibrillation on Eliquis along with chronic obstructive pulmonary disease. She presented from the [facility] where she resides at [facility], initially last night was seen for the same symptoms, generalized weakness, and found to be stable and was discharged back to the care of the [facility] with instructions that she was to followup with Dr. Galeana this morning. Before she could be referred to Dr. Galeana's, she was sent back from the [facility] to the Emergency Room for evaluation of ongoing symptoms which included generalized weakness. Repeat labs at that time showed she dropped from 7.1 to 6.3 in less than 10 hours. Rectal exam done by the Emergency Room physician and did reveal a positive occult blood and showed some dark, tarry stools. The patient denies she has been having any nausea, vomiting, diarrhea, abdominal pains or any bowel habit changes. Review of her past medical history does show she has had multiple hospitalizations and review of hemoglobin and hematocrit shows she runs between 8.8 and 9.0 with the last one this past month on 10/30 showed she had a hemoglobin of 8.6. Again, she dropped to 6.3 in less than 10 days She does take Eliquis for anticoagulation due to atrial fibrillation which I believe she was started on just recently when she went to [place]. The patient again denies any actual zahra bleeding. Her hemodynamics are showing she was fairly stable with blood pressure at 119/49, heart rate 76, oxygen saturation 92 to 98% on room air.Given she has been slowly dropping her H&H ans she has had some evidence of occult blood that is positive, Emergency Room physician requested she be transferred for colonoscopy and for further evaluation. However given the state that she is not currently unstable, Dr. Rodriguez recommended she be transfused one unit and see him as an outpatient in the morning. The patient was going to be transferred one unit in the Emergency Room, however, she was found to have antibodies on type and cross and due to the delay of getting blood available from [facility] in . [place], she is going to be placed in observation awaiting blood and then be transfused overnight and discharged to followup with Dr. Rodriguez to further evaluation the source of the bleeding. We will plan to hold her Eliquis at this point until we can identify a source of bleeding. Again, the patient remains hemodynamically stable. PAST MEDICAL HISTORY: 1. Chronic obstructive pulmonary disease. 2, Hyperlipidemia. 3. Hypertension. 4. Chronic atrial fibrillation, although showing a sinus rhythm at time of admission and on Eliquis. PAST SURGICAL HISTORY: 1. Hysterectomy. 2. Tonsillectomy. 3. Appendectomy. 4. Colonoscopy per patient who is not the best historian, shows to be around 2 to 3 years. CURRENT MEDICATIONS: Besides Eliquis, we are awaiting an updated list and electronic medical records from [facility]. ALLERGIES: NO KNOWN DRUG ALLERGIES. FAMILY HISTORY: SOCIAL HISTORY: The patient was recently admitted to [facility]. She has a history of cigarette smoking of approximately 60 packs per year but quit 2 years previously. She denies any alcohol or illicit drug use. REVIEW OF SYSTEMS: GENERAL: Positive for generalized weakness and fatigue, negative for unintentional weight loss, no fevers. HEENT: Negative for sore throat, earaches, nasal congestion, headaches. CHEST: Negative for shortness of breath, wheezing or coughing. She does have dyspnea on exertional effort. HEART: Negative for chest pain, palpitations, syncopal episodes or tachycardia. ABDOMEN: Negative for nausea, vomiting, diarrhea or constipation, abdominal pains, bowel habit changes or bright red blood per rectum, hematochezia. She does have some tarry stools on rectal exam. GENITOURINARY: Negative for dysuria, hematuria or polyuria. NEUROLOGIC: Negative for headaches, seizures, ataxia, vision changes or other neurological deficits other than just generalized weakness. HEMATOLOGIC: Denies easy bruising, active bleeding or transfusion reactions, although currently she is on Eliquis and has associated anemia with this. PHYSICAL EXAMINATION: VITAL SIGNS: Temperature 97.8, pulse 76, blood pressure 119/49, respirations 16, oxygen saturation 91 to 98% on room air. GENERAL: The patient does appear tired but looks to be in no acute distress. HEENT: Tympanic membranes are clear bilaterally. Oropharynx is pink and most without lesions. NECK: Supple, non-tender, full range of motion. No jugular venous distention. CHEST: Lung sounds are clear to auscultation without rhonchi, rales, or wheezes. CARDIOVASCULAR: Regular rate and rhythm without notable murmurs, rubs, or gallops. ABDOMEN: Soft, non-tender, positive bowel sounds. EXTREMITIES: She moves all extremities ad leon. No obvious cyanosis, clubbing, or edema. SKIN: Warm, pink and dry. RECTAL: Deferred at this time as Emergency Room physician reported normal rectal tone, no hematochezia but positive stools verus dried blood. BACK: Without CVA or vertebral tenderness. LABORATORY: H&H is 6.3 and 19.1 respectively with platelet count at 372,000. White count low at 3.0, differential shows to be without a left shift. Coagulation studies showed a PT of 13.3 with INR of 0.34 with PTT of 29.4. Chemistries: All electrolytes within normal limits with BUN 15, creatinine 1.07, calcium 7.8, corrected for low albumin at 1.9 to 8.4. Liver functions all within normal limits. Urinalysis showed positive nitrites with trace amount of leukoesterase with microscopic revealing 0 RBC, 3 to 5 WBC, 1+ amorphous material, 3+ bacteria. She did have one occult stool blood that was positive. RADIOLOGY: No current radiographic studies for review. EKG shows a sinus rhythm with no nonspecific ST-T-wave changes but a controlled ventricular rate. ASSESSMENT: 1. Anemia, mildly symptomatic, likely due to chronic loss during anticoagulation therapy with Eliquis with no additional acute loss. 2. Chronic obstructive pulmonary disease with no signs of exacerbation. PLAN: Ms. Sheppard is going to be placed in observation awaiting transfusion of one unit of packed red blood cells. The plan initially in the Emergency Room was to transfuse one unit and send back to [facility] to have the patient followup with Dr. Rodriguez in the morning at 9:15, however, the patient has some kind of antibody making it very difficult to crossmatch. Therefore, it is going to be delayed anywhere from 6 to 10 hours. Therefore, the patient will be placed in observation to be transfused one unit and discharged in the morning to followup with Dr. Rodriguez in the outpatient clinic at 9:15. We will resume her home medications once those have been updated and verified. Will hold off on any Lasix after this first unit as she does show to be a little dry but we will see how she does with fluids. I anticipate her length of stay to be 1 to 2 days and probably discharge tomorrow afternoon. She will be on a regular diet as tolerated. She will be given fluids as needed to maintain blood pressure awaiting units. I did get in touch with Dr. Rodriguez's office with no special instructions other than have the patient followup in the clinic tomorrow at 9:15, I do not know if he will do it over here or over there. Until we can transition her to outpatient management, we will continue to monitor and treat as needed #[id number] MTDD
[2019-11-12] MEDS ORDERED: ALUM & MAG HYDROX-SIMETHICONE 30 ML UD PO PRN (16:19)
[2019-11-12] MEDS ORDERED: MAGNESIUM HYDROXIDE 30 ML UD PO PRN (16:19)
[2019-11-12] MEDS ORDERED: ACETAMINOPHEN 325 MG TAB PO PRN (16:19)
[2019-11-12] MEDS ORDERED: SODIUM CHLORIDE 0.9% (FLUSH) 10 ML SYG IV PRN (16:19)
[2019-11-12] MEDS ORDERED: diphenhydrAMINE HCL 50 MG/ML VIAL IV ONE (16:21)
[2019-11-12] MEDS ORDERED: ACETAMINOPHEN 325 MG TAB PO ONE (16:21)
[2019-11-12] MEDS ORDERED: SODIUM CHLORIDE 0.9% 500ML 500 ML IVS SCH (16:30)
[2019-11-12] MEDS ORDERED: IV SET AND CAP CHANGE INJ INJ SCH (16:30)
[2019-11-12] MEDS: FERROUS GLUCONATE 325 MG TAB PO SCH ×2 (17:09→17:43)
[2019-11-12] MEDS ORDERED: ALBUTEROL SULFATE 2.5 MG/3 ML VIAL NEB PRN (20:48)
[2019-11-12] MEDS: PRAVASTATIN SODIUM 20 MG TAB PO SCH (21:23)
[2019-11-12] MEDS: METOPROLOL TARTRATE 25 MG TAB PO SCH (21:23)
[2019-11-12] MEDS: MIRTAZAPINE 15 MG TAB PO SCH (21:23)
[2019-11-12] MEDS: MELATONIN 3 MG TAB PO SCH (21:23)
[2019-11-13] MEDS: SODIUM CHLORIDE 0.9% 1000ML 1,000 ML IVS PRN (06:45)
[2019-11-13] MEDS: FERROUS GLUCONATE 325 MG TAB PO SCH (07:18)
[2019-11-13] MEDS ORDERED: PRIMIDONE 50 MG TAB PO ONE (08:40)
[2019-11-13] MEDS ORDERED: NON-FORMULARY MEDICATION 1 EA MIS (Ferrous Sulfate [Ferrous Sulfate] 325 MG) PO SCH (09:00)
[2019-11-13] MEDS ORDERED: LISINOPRIL 2.5 MG PO SCH (09:00)
[2019-11-13] MEDS: LISINOPRIL 5 MG TAB PO SCH (09:11)
[2019-11-13] MEDS: METOPROLOL TARTRATE 25 MG TAB PO SCH ×2 (09:11→21:09)
[2019-11-13] MEDS: AMIODARONE HCL 200 MG TAB PO SCH (09:11)
--- NOTE | 2019-11-13 11:08 | CONS ---
DATE OF CONSULTATION: 11/13/19 REFERRING PROVIDER: Darwin Camarena NP REASON FOR CONSULT: Iron deficiency anemia. HISTORY OF PRESENT ILLNESS: Ms. Sheppard is a 74-year-old woman with a history of atrial fibrillation on Eliquis, COPD, hypertension and dyslipidemia who was brought from her nursing facility for abnormal lab work. She was seen in the Emergency Room yesterday with a hemoglobin of 6.3. The patient denies any overt GI bleeding. She has mild constipation. There is no melena or hematochezia per her report, no abdominal pain, no unintentional weight loss, no nausea or vomiting. She had a colonoscopy years ago and is unsure of the results. No NSAID use. No family history of GI malignancy. PAST MEDICAL HISTORY: 1. Chronic obstructive pulmonary disease. 2. Atrial fibrillation. 3. Dyslipidemia. 4. Hypertension. PAST SURGICAL HISTORY: 1. Hysterectomy. 2. Tonsillectomy. 3. Appendectomy. ALLERGIES: NO KNOWN DRUG ALLERGIES. FAMILY HISTORY: No relevant GI disease. SOCIAL HISTORY: She has a 60-pack year history of smoking, but has not used tobacco in the past three years. No alcohol or drugs. REVIEW OF SYSTEMS: GENERAL: Positive for weakness. Negative for weight loss, fever. HEENT: Negative for sore throat, earaches, nasal congestion, headaches. CHEST: Negative for shortness of breath, wheezing or coughing. HEART: Negative for chest pain, palpitations. ABDOMEN: Negative for nausea, vomiting, diarrhea or constipation. GENITOURINARY: Negative for dysuria, hematuria. NEUROLOGIC: Negative for headaches or seizures. HEMATOLOGIC: Negative for easy bleeding or bruising. PHYSICAL EXAMINATION: VITAL SIGNS: Temperature 97.8, pulse 76, blood pressure 119/49. Saturation 91% on room air, 98% on 2 liters by nasal cannula. GENERAL: The patient is comfortable. HEENT: Anicteric with moist mucous membranes. CHEST: Lungs clear to auscultation bilaterally. CARDIOVASCULAR: S1, S2, regular rate and rhythm. ABDOMEN: Soft, nontender, nondistended. LABORATORY: Relevant labs: Hemoglobin 6.3, platelet count 372,000. Leukocytes 3.0. PT 13.3, PTT 29.4. Creatinine 1.1. ASSESSMENT: This is a 74-year-old woman with a history of atrial fibrillation on Eliquis and chronic obstructive pulmonary disease presenting for evaluation of severe iron deficiency anemia. She requires evaluation for source of occult GI blood loss. At this time, she is currently admitted to the hospital as it has been difficult to transfuse her blood due to the presence of antibodies. RECOMMENDATION: 1. Transfuse 2 units of blood. 2. Hold Eliquis until after she has endoscopy. 3. Discharge home with oral iron therapy. 4. We will arrange for an outpatient EGD and colonoscopy likely to be performed at the hospital given the patient's oxygen requirement. #[id number] [facility]
--- NOTE | 2019-11-13 11:26 | PN ---
SUPERVISING PHYSICIAN: Sky Galeana MD DATE: 11/13/19 SUBJECTIVE: The patient is sitting up in bed. She is weak, but has no complaints of shortness of breath, nausea, vomiting, chest pain. We discussed that we were awaiting her blood which has several incompatibilities and that Dr. Rodriguez, simulation tech, would see her sometime today and if she needed 2 units of blood, she would most likely be discharged tomorrow. OBJECTIVE: VITAL SIGNS: Temperature 98, heart rate 85, blood pressure 144/64, respiratory rate 20 to 22, O2 saturation 99% on 2.5 liters nasal cannula. RESPIRATORY: Essentially clear to auscultation bilaterally. CARDIAC: Regular rate and rhythm. GASTROINTESTINAL: Abdomen is soft, nondistended, nontender. Bowel sounds are positive. NEUROLOGIC: Awake, alert and oriented times three. LABORATORY: Urine culture is pending. There are no other labs or films to report today. ASSESSMENT: 1. Anemia, mildly symptomatic, likely due to chronic loss during anticoagulation therapy with Eliquis with no additional acute loss. 2. Chronic obstructive pulmonary disease with no signs of exacerbation. PLAN: We will continue present supportive care. Hopefully, she will get her blood transfusion sometime today and according to Dr. Rodriguez, he felt she should get both units of blood today. Dr. Rodriguez felt that he could do an upper and lower GI scope on her in a couple of weeks in [place]. She will need close followup with her primary care physician. Dr. Galeana. It is to be noted on her chart that if she has to have any surgical interventions or any blood for any reason, it may take over 24 hours to find compatibility since they have had an extremely difficult time getting her blood compatibilities and we still do not have the blood. I will let Dr. Galeana's office know. I will order a hemoglobin and hematocrit before she leaves in the morning. We will continue to monitor the patient closely and treat as needed. #[id number] MTDD
[2019-11-13] MEDS ORDERED: cefTRIAXone SODIUM 1 GM in SODIUM CHL 0.9% 50ML MIN-BAG+ 50 ML IVPB SCH (13:00)
[2019-11-13] MEDS: FERROUS SULFATE 325 MG TAB PO SCH (13:31)
[2019-11-13] MEDS: MELATONIN 3 MG TAB PO SCH (21:08)
[2019-11-13] MEDS: MIRTAZAPINE 15 MG TAB PO SCH (21:09)
[2019-11-13] MEDS: PRAVASTATIN SODIUM 20 MG TAB PO SCH (21:09)
[2019-11-14] MEDS: SODIUM CHLORIDE 0.9% 1000ML 1,000 ML IVS PRN (05:32)
[2019-11-14 06:14] VITALS: TEMP 97.8
[2019-11-14] MEDS ORDERED: MAGNESIUM SULFATE PREMIX 2GM 2 GM in PREMIX BAG 1 BAG IVPB ONE (08:46)
[2019-11-14] MEDS ORDERED: MAGNESIUM SULFATE PREMIX 2GM 50 ML IVPB ONE (09:11)
[2019-11-14] MEDS: AMIODARONE HCL 200 MG TAB PO SCH (09:14)
[2019-11-14] MEDS: METOPROLOL TARTRATE 25 MG TAB PO SCH (09:14)
[2019-11-14] MEDS: FERROUS SULFATE 325 MG TAB PO SCH (09:14)
[2019-11-14] MEDS: LISINOPRIL 5 MG TAB PO SCH (09:14)
[2019-11-14] MEDS: POTASSIUM CHLORIDE 20 MEQ TAB PO SCH ×2 (09:15→11:43)
[2019-11-14 12:28] VITALS: BP 139/71
[2019-11-14 13:32] VITALS: O2SAT 99
--- NOTE | 2019-11-14 14:11 | DS ---
SUPERVISING PHYSICIAN: Sky Galeana MD DISCHARGE DIAGNOSIS: 1. Anemia, mildly symptomatic, likely due to chronic loss during anticoagulation therapy with Eliquis and no additional acute loss. 2. Chronic obstructive pulmonary disease with no signs or symptoms of exacerbation. 3. Urinary tract infection. She was given Rocephin and sent home on cefdinir. Cultures are pending. 4. History of atrial fibrillation. She has been on Eliquis in the past, but it will be discontinued until her upper and lower GI scopes. HISTORY OF PRESENT ILLNESS: This is a 74-year-old female patient who has been in the Emergency Room several times over the last 1-1/2 months. She has a history of atrial fibrillation on Eliquis as well as chronic obstructive pulmonary disease. [facility] generalized weakness and was found to be stable. She was discharged back to the [facility] with instructions to followup with Dr. Galeana . Before that, she was sent back to the Emergency Room for another evaluation due to ongoing symptoms which again included generalized weakness. Repeat labs at that time showed her hemoglobin dropped from 7.1 to 6.3. Her stool was positive for occult blood and showed some dark, tarry stools. The patient denies she has been having any nausea, vomiting, diarrhea, abdominal pains or any bowel habit changes. She has had multiple hospitalizations in the past with hemoglobin between 8.8 and 9.0. She does take Eliquis for atrial fibrillation and she was started on that just recently. She has a fairly stable blood pressure, no history of any clots and her heart rate has been in the 70s with O2 saturation 92 to 98% on room air. Given the fact that she has had a slowly dropping H&H as well as occult blood that is positive, she was admitted for observation. Initially, they were going to transfuse one unit and send her back to the [facility], but due to multiple antibodies, it was difficult to crossmatch her blood, so she was placed in the hospital under observation to await blood transfusion. HOSPITAL COURSE: She had an appointment with Dr. Rodriguez, GI specialist in [place]. He saw her in consultation and he felt that due to difficulty crossmatching blood, to go ahead and give two units and he would see her in about two weeks in [place] for an upper and lower GI scope. He also recommended she be taken off Eliquis until after the scope is completed. About 36 hours after her blood was ordered, we received the blood and the patient was transfused two units of blood overnight. This morning, her hemoglobin and hematocrit were stable and her magnesium was low. She received 2 grams of magnesium in supplementation. Her potassium was also low at 2.8. She received 40 mEq of potassium chloride and two hours later received another 40 mEq of potassium. A recheck two hours after her supplementation, her potassium is still low. She will be discharged to [facility] in stable condition with close followup with Dr. Galeana and Dr. Rodriguez. LABORATORY: Her initial hemoglobin was 6.3 and hematocrit 19.1. After two units of packed red blood cells, it came up to 10.8 and 32.8. Her sodium went down as low as 132 and is now stabilized at 135. Potassium was 4.1 at admission and this morning was 2.8. Chloride was 99 and now is 97. Her calcium is 7.9, magnesium was 1.5 and is now 2.7. She also had a urinary tract infection with positive urine nitrites and a trace of urine leukocyte esterase and 3+ urine bacteria. She was also put on Rocephin for the UTI and culture is pending. DISCHARGE PLAN: The patient will be discharged back to [facility] in stable condition. She is to resume her previous diet and increase her activity as tolerated. She is to followup with Dr. Galeana next week. We will need the [facility] to call Dr. Galeana's office to get a telehealth office visit for next week. During that visit, he will need to followup that the scope is scheduled with Dr. Rodriguez in two weeks. I have also discontinued her Eliquis for now until she gets the scope. In addition to her routine medications, she is also to have cefdinir for one week. She is to have a hemoglobin and hematocrit prior to her appointment with Dr. Galeana. It is also to be noted that in the future if the patient needs any blood products for any procedure or procedures that require blood products, she will need to be crossmatched about 24 to 36 hours prior to the procedure as she does have several antibodies that make it difficult for crossmatch. DISCHARGE MEDICATIONS: 1. Pravastatin. 2. Aspirin. 3. Sodium chloride. 4. Albuterol inhaler. 5. Potassium chloride. 6. Remeron. 7. Metoprolol. 8. Melatonin. 9. Lisinopril. 10. Furosemide. 11. Ferrous sulfate. 12. Docusate sodium. 13. Calcium and vitamin D. 14. Amiodarone. 15. Proventil nebulizers. 16. Acetaminophen. 17. Cefdinir. #[id number] [facility]
== END 2019-11-14 13:45 | disposition home or self-care (01) ==
LOC: ER 19:52
DX: D50.0 Iron deficiency anemia secondary to blood loss (chronic) (principal); N39.0 Urinary tract infection, site not specified; I48.20 Chronic atrial fibrillation, unspecified; E87.6 Hypokalemia; E83.42 Hypomagnesemia; K62.5 Hemorrhage of anus and rectum; I95.9 Hypotension, unspecified; E86.1 Hypovolemia; J44.9 Chronic obstructive pulmonary disease, unspecified; I11.0 Hypertensive heart disease with heart failure; I50.9 Heart failure, unspecified; F03.90 Unspecified dementia, unspecified severity, without behavioral disturbance, psychotic disturbance, mood disturbance, and anxiety; E78.5 Hyperlipidemia, unspecified; Z66 Do not resuscitate; Z79.01 Long term (current) use of anticoagulants; Z79.82 Long term (current) use of aspirin; Z79.899 Other long term (current) drug therapy; Z87.891 Personal history of nicotine dependence; Z80.0 Family history of malignant neoplasm of digestive organs; Z82.49 Family history of ischemic heart disease and other diseases of the circulatory system
CPT/HCPCS: 36415; 71045; 80048; 80053; 81001; 81403; 82270; 83735; 83880; 84484; 85025; 85610; 85730; 86870; 86880; 86905; 86906; 86922; 86970; 87086; 93005; 94640; 94760; 96361; 96365; 96367; 96374; 96375; 96376; 99284; 99285; A4216; G0378; J0696; J1200; J2930; J3475; J3490; J7030; J7040; J7050; J7620; P9016

== ENCOUNTER → 2020-05-13 | Outpatient (CLI) | payer MEDICARE | LOC: GT 18:34 | PROVIDERS: ATTEND Family Medicine | DX: R79.89 Other specified abnormal findings of blood chemistry (principal); R68.89 Other general symptoms and signs ==